=== PATIENT | male | born 1965 | race Caucasian/White ===

== ENCOUNTER → 2017-11-10 | Day surgery (SDC) | payer BC ==
[2017-10-30 16:08] VITALS: BMI 26.0
[~2017-11-10] VITALS: Ht 172.7 cm; Wt 79.5 kg
[~2017-11-10] MED LIST: ATROPINE SULFATE 0.1 MG/ML 5ML SYR IV PRN; BUPIVACAINE 0.5 % 5 MG/1 ML MPF 30ML VIAL ONE; CEFAZOLIN 2000MG IV PUSH 15 ML IV SCH; CEFAZOLIN SOD 2000MG/15 ML IV PUSH ONE; CHOL2000 PO; DEXAMETHASONE SOD INJ 4 MG/ML VIAL ONE; EpHEDrine SULFATE INJ 50 MG/ML AMP ONE; FENTANYL CITRATE INJ 50 MCG/1 ML 2 ML VIAL ONE; GLYCOPYRROLATE INJ 0.2 MG/ML VIAL ONE; HYDROmorphone INJ 2 MG/ML SYR/VIAL IV PRN; HYDROmorphone INJ 2 MG/ML SYR/VIAL ONE; IBUP-1050 PO; KETOROLAC TROMETHAMINE 30 MG/ML VIAL IV. PRN; LACTATED RINGER'S 1000ML 1,000 ML IV SCH; LIDOCAINE HCL 1% 20 ML VIAL ONE; LIDOCAINE HCL 2% 2 ML VIAL (20MG/ML) ONE; MIDAZOLAM HCL 1 MG/ML 2ML VIAL ONE; MoRPHine SULFATE 4 MG/ML 1 ML CARP\\VIAL IV PRN; NEOSTIGMINE METHYLSULFATE 5 MG/5 ML SYR ONE; ONDANSETRON INJ 2 MG/ML 2 ML VIAL IV PRN; ONDANSETRON INJ 2 MG/ML 2 ML VIAL ONE; OXYCODONE/ACETAMINOPHEN 5-325 TAB PO PRN; PHENYLEPHRINE HCL INJ 10 MG/ML VIAL ONE; PREG100C PO; PROPOFOL IV EMULSION 10 MG/ML 20 ML VIAL ONE; SODIUM CHLORIDE 0.9% 1000ML 1,000 ML IV SCH; SUCCINYLCHOLINE CHLORIDE 20 MG/ML 10 ML VIAL IV ONE
[2017-11-10 05:47] VITALS: BP 144/88; PULSE 73; TEMP 36.6; O2SAT 96; Ht 172.7 cm; Wt 79.5 kg
--- NOTE | 2017-11-10 06:49 | History & Physical Bridge Note ---
H&P Re-Evaluation Bridge Note: I have examined the patient, reviewed the History & Physical and in the interval since the performance of the History & Physical I have noted the following changes of clinical significance: No changes noted
--- NOTE | 2017-11-10 08:11 | [facility] Post Operative Brief Note ---
Immediate Operative Summary Operative Date November 10, 2017. Pre-Operative Diagnosis Left Inguinal Hernia Post-Operative Diagnosis same Procedure(s) Performed Left Inguinal Hernia repair with polypropylene monofilament mesh Surgeon Dr. Jamie Bermeo Refrigerating Engineer Head Surgeon(s) Juany Cohen PA-C Estimated Blood Loss 5mL Findings Consistent with Post-Op Diagnosis Specimens none Drains None Anesthesia Type General Complication(s) none Disposition Disposition: Recovery Room / PACU
--- NOTE | 2017-11-10 08:15 | Discharge Instructions ---
Discharge Instructions Date of Service November 10, 2017. Admission Reason for Admission: Left Inguinal Hernia Discharge Discharge Diagnosis / Problem: Same Discharge Goals Goal(s): Decrease discomfort Activity Recommendations Activity Limitations: per Instructions/Follow-up section Lifting Limitations: no more than 10 pounds (for 6 weeks) Shower/Bathe: no limitations (shower only), tomorrow ACTIVITY RECOMMENDATIONS: * Walk as much as possible. * No heavy lifting (>10 lbs.) for 6 weeks. SPECIAL CARE INSTRUCTIONS: * Ice to hernia repair site on and off until bedtime tonight. * May shower in 24 hours. Let water run over area and pat dry. * Leave steri strips on for one week. * Call the surgeon's office with any questions or concerns - (ex. temperature higher than 101 degrees F, excessive bleeding or pain). MEDICATIONS: Resume previous medications unless instructed otherwise by your surgeon. * Ibuprofen 600 mg every 6 hours with food * Percocet 1 every 4 hours, as needed for pain FOLLOW UP VISIT: If not already scheduled, please call the office to schedule a two week follow- up appointment. Office number . Current Hospital Diet Patient's current hospital diet: Discharge Diet Recommended Diet: Regular Diet Procedures Procedures Performed: Left Inguinal Hernia repair with polypropylene monofilament mesh Pending Studies Studies pending at discharge: no Medical Emergencies . Who to Call and When: Medical Emergencies: If at any time you feel your situation is an emergency, please call 911 immediately. . Non-Emergent Contact Non-Emergency issues call your: Primary Care Provider, Surgeon Call Non-Emergent contact if: your pain is worsening, your pain is unusual for you, wound has increased redness . "Provider Documentation" section prepared by Jamie Bermeo. .
[2017-11-10] MEDS: FENTANYL CITRATE INJ 50 MCG/1 ML 2 ML VIAL IV PRN ×8 (08:43→09:20)
--- NOTE | 2017-11-10 09:43 | Anesthesiology Progress Note ---
Anesthesia Post Op Note Date & Time November 10, 2017 at 09:43 Vital Signs Vital Signs Past 12 Hours Date Time Temp Pulse Resp B/P (MAP) Pulse Ox O2 Delivery O2 Flow Rate FiO2 11/10/17 09:25 36.5 81 16 138/81 100 Room Air 11/10/17 09:15 80 16 138/83 100 Room Air 11/10/17 09:05 77 16 124/68 100 Oxymask 7 11/10/17 08:55 73 16 104/52 100 Oxymask 7 11/10/17 08:45 70 16 140/87 100 Oxymask 7 11/10/17 08:36 36.3 83 83 146/89 100 Oxymask 7 11/10/17 05:47 36.6 73 18 144/88 (106) 96 Room Air Notes Mental Status: alert / awake / arousable, participated in evaluation Pt Amnestic to Procedure: Yes Nausea / Vomiting: adequately controlled Pain: adequately controlled Airway Patency, RR, SpO2: stable & adequate BP & HR: stable & adequate Hydration State: stable & adequate Anesthetic Complications: no major complications apparent
[2017-11-10 09:52] VITALS: BP 131/83; PULSE 74; TEMP 36.9; O2SAT 98
[2017-11-10 10:22] VITALS: BP 120/77; PULSE 77; TEMP 36.8; O2SAT 97
--- NOTE | 2017-11-10 10:44 | OPERATIVE REPORT ---
DATE OF OPERATION: 11/10/2017 PREOPERATIVE DIAGNOSIS: Left inguinal hernia. POSTOPERATIVE DIAGNOSIS: Left direct inguinal hernia. PROCEDURE: Repair of left direct inguinal hernia. SURGEON: Jamie Bermeo MD OB SCRUB TECH: Juany Cohen PA-C FINDINGS: The patient had a moderate-sized hernia sac. The defect was within the floor of the canal. There was no direct component. There were no incarcerated contents. The cord structures appeared normal. TECHNIQUE: The patient was given a general anesthetic and the area was prepped and draped in the usual sterile fashion. A left inguinal incision was made, carried down through the subcutaneous tissue to the fascia. A small incision was made in the fascia and the underlying structures were off its undersurface and it was opened through the external ring. It was opened superolaterally as well. The edges of the external oblique were retracted medially and laterally. I then elevated the contents of the canal and working at the level of the pubic tubercle and near the internal ring. I was able to separate the cord structures away from the floor of the canal, at which point the direct hernia sac was easily identified. The hernia sac was away from the cremasteric fibers and surrounding the cord structures and was completely freed. The cord was then elevated away from the floor and ferrer of the canal completely. The hernia sac was away from the edges of the defect and placed back into its anatomic position and the floor was oversewn with a running 0 PDS. A piece of preformed inguinal hernia mesh was placed into the inguinal canal and sewn to the anterior surface of the internal oblique medially, tissue over the pubic bone inferiorly, and the shelving border of the inguinal ligament laterally. The legs of the mesh were approximated to each other to create a new internal ring that admitted the tip of my finger. Cord structures were placed back into their anatomic position and the external oblique was closed over them using a running 2-0 Vicryl. The deep subcutaneous tissue was closed with running 2-0 Vicryl. The superficial subcutaneous tissue was closed with running 3-0 Vicryl. The skin was closed with 4-0 Monocryl in running subcuticular fashion. The skin was anesthetized with 0.5% Marcaine and an ilioinguinal block was performed with that same local. The skin was cleansed, dried, benzoin placed, Steri-Strips applied. The estimated blood loss was 5 mL. Sponge, needle, and instrument counts were correct prior to closure. The patient tolerated the surgical procedure without complication and was transferred to recovery. I attest to the content of the Intraoperative Record and any orders documented therein. Any exception s are noted below.
[2017-11-10 10:45] VITALS: BP 125/75; PULSE 76; TEMP 36.5; O2SAT 95
== END | disposition home or self-care (01) ==
LOC: C.ACU 05:20
PROVIDERS: ATTEND Surgery
DX: K40.90 Unilateral inguinal hernia, without obstruction or gangrene, not specified as recurrent (principal); M79.7 Fibromyalgia; F17.210 Nicotine dependence, cigarettes, uncomplicated

== ENCOUNTER 2019-01-26 11:20 | Inpatient (IN) ==
--- OUTSIDE RECORDS SUMMARY | 2019-01-26 11:24 | External Medical Summary | Continuity of Care Document ---
:1965 Author Name Mayo Perez, Provider Address Unavailable Unavailable , Care Team Providers Name Role Phone Unavailable Unavailable Unavailable Karen Perez, Devan Santiago Unavailable [email or web address] CHRISTOPHER GANDHI M.D., Jacob Unavailable Unavailable Unavailable Unavailable Unavailable Problems Vitamin D deficiency (268.9) (E55.9) Infectious mononucleosis (075) (B27.90) Lyme disease (088.81) (A69.20) Lumbosacral neuritis (724.4) (M54.17) Numbness (782.0) (R20.0) Fever (780.60) (R50.9) Open Wound Of The Left Ring Finger (883.0) Preventive Medicine [facility] Patient Checkup Adult 40-64 (V70.0 ) Nausea (787.02) (R11.0) Encounter for screening for malignant neoplasm of prostate ( V76.44) (Z12.5) Nicotine dependence (305.1) (F17.200) Arthralgia of multiple sites (719.49) (M25.50) Myalgia and myositis (729.1) Myelopathy (336.9) (G95.9) Esophageal reflux (530.81) (K21.9) Abnormal liver function test (790.6) (R94.5) Urticaria (708.9) (L50.9) Open wound of finger (883.0) (S61.209A) Tingling (782.0) (R20.2) Dizziness (780.4) (R42) Polymyalgia rheumatica (725) (M35.3) Lower back pain (724.2) (M54.5) Allergies and Adverse Reactions No Known Drug Allergies (Allergy) Medications Vitamin D3 2000 UNIT Oral Capsule; TAKE 1 CAPSULE Daily Ana Jones Start: 12-Nov-2013 Quantity: 30 Refills: 5 Procedures History of Grafts Bone Status: Completed Preventive Medicine Estab Patient Checkup Adult 40-64 Immunizations Influenza On: Apr-2013 Tdap (Adacel) On: 17-Jun-2013 14:22 Lot #: [id number], SANOFI PASTEUR Family History Father Family history of Hypertension (V17.49) Status: Active Family history of Glaucoma Status: Active Family history of Acute Myocardial Infarction (V17.3) Status : Active Mother Family history of Breast Cancer (V16.3) Status: Active Unknown Family Member Family history of Cancer Status: Active Comments: Famil y History uncle Family history of Cancer Status: Active Plan of Treatment Planned Observations Planned Goals not documented Results No Known Results Results not documented
[2019-01-26] MEDS ORDERED: SODIUM CHLORIDE 0.9% 1000ML 1,000 ML IV ONE (11:49)
[2019-01-26 11:57] LABS: Basophils # (auto) 0.02 K/uL (0-0.2); Basophils % (auto) 0.2 %; Eosinophils # (auto) 0.23 K/uL (0-0.5); Eosinophils % (auto) 2.2 %; Hematocrit (blood only) 45.1 % (42-52); Hemoglobin 15.8 g/dL (14.0-18.0); Immature Granulocytes # (auto) 0.03 K/uL (0.00-0.02); Immature Granulocytes % (auto) 0.3 %; Lymphocytes # (auto) 3.85 K/uL (1.2-3.4); Lymphocytes % (auto) 37.2 %; Mean Platelet Volume 10.5 fL (7.4-10.4); Monocytes # (auto) 0.59 K/uL (0.11-0.59); Monocytes % (auto) 5.7 %; Neutrophils # (auto) 5.62 K/uL (1.4-6.5); Neutrophils % (auto) 54.4 %; Platelet Count 232 K/uL (130-400); RDW Coefficient of Variation 12.6 % (11.5-14.5); RDW Standard Deviation 39.9 fL (36.4-46.3); Red Blood Count 5.07 M/uL (4.7-6.1); White Blood Count 10.34 K/uL (4.8-10.8)
--- NOTE | 2019-01-26 12:02 | XRay Report ---
XR chest 1V portable HISTORY: 53 years-old Male CP, smoker acute atypical chest pain COMPARISON: None available TECHNIQUE: Portable AP view of the chest FINDINGS: Cardiac mediastinal and hilar silhouettes are within normal limits. No pneumothorax, pleural effusion , focal airspace consolidation or overt pulmonary edema. Bones of the chest appear grossly intact. IMPRESSION: No acute process. The above report was generated using voice recognition software. It may contain grammatical, syntax o r spelling errors. Electronically signed by: Jimmie Paul M.D. 01/26/2019 12:00 PM
[2019-01-26 12:05] LABS: BUN Creatinine Ratio 12.7 (10-20); Calcium 9.5 mg/dl (8.5-10.1); Creatinine Clr Calc Pharmacy 98.5 ml/min; Est GFR (African American) 108.9; Potassium 4.1 mmol/L (3.5-5.1)
[2019-01-26 12:09] LABS: Troponin I 0.016 ng/ml (0-0.045)
[2019-01-26 12:24] LABS: D Dimer 210 ug/L FEU (0-500)
[2019-01-26] MEDS ORDERED: ASPIRIN 81 MG CHEW PO STA (14:10)
[2019-01-26] MEDS ORDERED: HEPARIN SODIUM/DEXTROSE 25,000 UNITS/500 ML BAG IV SCH (14:30)
[2019-01-26 15:00] LABS: Partial Thromboplastin Time 25.9 Seconds (21.0-31.0); Prothrombin Time 10.3 Seconds (9.0-12.0)
[2019-01-26] MEDS ORDERED: MIDAZOLAM HCL 1 MG/ML 2ML VIAL ONE ×3 (15:16→17:09)
[2019-01-26] MEDS ORDERED: NITROGLYCERIN/D5W 100MCG/ML 20ML SYR ONE (15:17)
[2019-01-26] MEDS ORDERED: NiCARDipine HCL INJ 2.5 MG/ML 10 ML AMP ONE (15:17)
[2019-01-26] MEDS ORDERED: HEPARIN (PORCINE) 1000 UNIT/ML 10 ML (CATH LAB USE ONLY) ONE ×2 (15:17→16:48)
[2019-01-26] MEDS ORDERED: fentaNYL citrate 100 MCG/2 ML VIAL ONE (15:17)
--- NOTE | 2019-01-26 15:27 | Cardiology Consultation ---
Date of Consultation January 26, 2019 Assessment & Plan (1) Non-ST elevation RI (NSTEMI): (2) HTN (hypertension): (3) Dyslipidemia: (4) Tobacco abuse: 53-year-old patient presents emergency department with chest discomfort and elevated troponin suggestive of NSTEMI. Exercise stress echo negative for inducible ischemia 08/2018, however, upon review of stress ECG, there are ST depressions. No regional wall motion abnormalities noted. Statin therapy recently discontinued secondary to fibromyalgia. Patient received aspirin in the ER. Recommend restarting statin therapy and IV heparin. Risk, benefits, and alternatives to cardiac catheterization discussed with patient at length. He is agreeable to procedure and percutaneous intervention if indicated. Smoking cessation advised. Further recommendations clinical course and results of cardiac catheterization. History of Present Illness Reason for Consultation: Chest pain, NSTEMI Requesting Physician: Dr. Lo, ER physician Attending Physician: Dr. Elías Seals History of Present Illness 53-year-old patient presented to the emergency department with chest discomfort radiating to his arms and wrist. Patient carries a history of intermittent chest and arm discomfort dating back to July of this year. He was evaluated by PCP at that time and underwent exercise stress echocardiography in August. Exercise stress echo demonstrated ischemic ECG changes however there were no echocardiographic wall motion abnormalities to suggest ischemia. Notes 2 episodes of overt syncope over the past 6 months. Syncopal episodes are typically associated with pain. Today, patient was at work when he began to experience a tightness in his chest radiating to his neck. This was followed by a "hot flash". The discomfort radiated to his bilateral biceps and then to his wrist. States his arm discomfort became quite intense and persisted for more than 20 minutes. He attempted to rest however the symptoms did not resolve. Proceeded to the ER for further evaluation. Initial ECG unremarkable. First troponins minimally elevated with second set rising to positive range. He is chest pain-free after receiving aspirin in the emergency department. Denies personal history of coronary disease, congestive heart failure, rheumatic fever as a child, diabetes, or hypertension. Carries history of dyslipidemia previously treated with statin therapy however recently discontinued due to history of fibromyalgia. Admits to daily tobacco use and a 29-mmwy-illg history. Denies family history of premature coronary disease. No allergies. No prior intolerance to sedation. Allergies Allergy/AdvReac Type Severity Reaction Status Date / Time blue dye Allergy Unknown URINARY Verified 01/26/19 11:38 HESITIANCY duloxetine Allergy Unknown URINARY Verified 01/26/19 11:38 HESITIANCY milnacipran Allergy Unknown TESTICULAR Verified 01/26/19 11:38 PAIN Home Medications Home Medications Medication Instructions Recorded Confirmed Type ibuprofen 200 mg PO Q6H PRN 01/26/19 01/26/19 History pregabalin [Lyrica] 100 mg PO HS 01/26/19 01/26/19 History Patient History Medical History Lyme disease (Acute) Fibromyalgia (Chronic) Family History Mother Heart disease Father Heart disease Social History Preferred Language: [place]ican Feels Safe at Home: Yes Smoking Status: Current every day smoker Review of Systems Review of Systems: All systems reviewed & are unremarkable except as noted in HPI & below Physical Exam Physical Exam: General: NAD, AAO x3, well nourished. HEENT: Normocephalic. Atraumatic. Conjunctiva pink, no scleral icterus. Neck: No carotid bruits, the carotid upstrokes are brisk. No JVD. No HJR Heart: Regular normal S-1 and S-2 no S-3 or S-4 gallop. No murmurs or rub appreciated. PMI is not displaced. No RV heave. Lungs: Clear bilateral without rales , rhonchi, or wheeze. Abdomen: Normal bowel sounds. Soft. Nontender. No masses or organomegaly. No abdominal bruits. Extremities: No clubbing, cyanosis, or edema. Pulses: radial=2/4, Dorsalis pedis =2/4, posterior tibial=2/4. Neuro: Cranial nerves grossly intact. No focal motor deficit. Results & Data Vital Signs (Past 12 Hours) Vital Signs Temp Pulse Pulse Resp BP BP Pulse Ox 01/26/19 15:15 78 18 146/97 H 99 01/26/19 14:54 63 18 148/94 H 98 01/26/19 13:21 74 18 135/85 98 01/26/19 11:23 36.6 C 87 20 170/99 H 99 Laboratory Results Laboratory Results - last 24 hr 01/26/19 01/26/19 01/26/19 11:38 11:38 11:38 WBC 10.34 RBC 5.07 Hgb 15.8 Hct 45.1 MCV 89.0 MCH 31.2 MCHC 35.0 RDW Std Deviation 39.9 RDW Coeff of Luis F 12.6 Plt Count 232 MPV 10.5 H Immature Gran % (Auto) 0.3 Neut % (Auto) 54.4 Lymph % (Auto) 37.2 [place] % (Auto) 5.7 Eos % (Auto) 2.2 Baso % (Auto) 0.2 Immature Gran # (Auto) 0.03 H Neut # (Auto) 5.62 Lymph # (Auto) 3.85 H [place] # (Auto) 0.59 Eos # (Auto) 0.23 Baso # (Auto) 0.02 PT INR APTT PTT Ratio D-Dimer 210 Sodium 140 Potassium 4.1 Chloride 106 Carbon Dioxide 28 Anion Gap 6.0 BUN 12 Creatinine 0.92 Est Cr Clr Drug Dosing 98.5 Est GFR ( Amer) 108.9 Est GFR (Non-Af Amer) 94.0 BUN/Creatinine Ratio 12.7 Glucose 93 Calcium 9.5 Troponin I 0.016 01/26/19 01/26/19 11:38 13:30 WBC RBC Hgb Hct MCV MCH MCHC RDW Std Deviation RDW Coeff of Luis F Plt Count MPV Immature Gran % (Auto) Neut % (Auto) Lymph % (Auto) [place] % (Auto) Eos % (Auto) Baso % (Auto) Immature Gran # (Auto) Neut # (Auto) Lymph # (Auto) [place] # (Auto) Eos # (Auto) Baso # (Auto) PT 10.3 INR 1.0 APTT 25.9 PTT Ratio 1.0 D-Dimer Sodium Potassium Chloride Carbon Dioxide Anion Gap BUN Creatinine Est Cr Clr Drug Dosing Est GFR ( Amer) Est GFR (Non-Af Amer) BUN/Creatinine Ratio Glucose Calcium Troponin I 0.048 H*
--- NOTE | 2019-01-26 15:35 | Pre Anesthesia Assessment ---
Date of Service January 26, 2019 Pre Sedation Assessment Vital Signs Temp Pulse Pulse Resp BP BP Pulse Ox 01/26/19 15:15 78 18 146/97 H 99 01/26/19 14:54 63 18 148/94 H 98 01/26/19 13:21 74 18 135/85 98 01/26/19 11:23 36.6 C 87 20 170/99 H 99 Cardiovascular RRR, no murmur, no edema + regular rate Respiratory normal respiratory effort, lungs clear to auscultation Pre-Sedation Airway Assessment Smoking Status: Current every day smoker Hx Sleep Apnea: No Hx Difficult Intubation: No Short, Thick Neck: No Mallampati Class: II ASA: ASA3 NPO Status Date of Last Intake of Solid Food: 01/26/19 Time of Last Intake of Solid Foods: 06:00 Procedure Planning Contraindications for Sedation: none Current Medications Reviewed: Yes Notes The planned sedation has been discussed with the patient. Informed Consent was obtained. I have identified the patient, determined the appropriateness of sedation and have assessed the patient immediately prior to the procedure. All medicine(s) and interventions are by my order.
--- NOTE | 2019-01-26 15:35 | History & Physical Report ---
Date of Service January 26, 2019 Assessment & Plan (1) Chest pain: Elevated troponins suspected Non ST Elevation Myocardial Infarction (NSTEMI) -Patient in the AM of 01/26/19 had called his family doctor to report chest pain across the chest radiating down both arms. He had 2 episodes of theses type of pain and the first episode lasted for 15 to 20 minutes. When seen in the emergency room patient's chest pain appears to have resolved. First troponin was negative as 0.016 and 2nd troponin however was elevated to 0.048. Emergency room physician had initially ordered heparin drip for concern of Non ST Elevation Myocardial Infarction (NSTEMI) however while awaiting for the heparin drip, card iology Dr. Jimy Cardenas advised cardiac cath on 01/26/19 -follow up results from cardiac cath and cardiology recommendations Code Status: full code : [phone] Patient is admitted by hospitalist Dr. Seals and will be followed on 01/27/[address] Rudd History of Present Illness Patient seen and examined in the ED prior to cardiac cath. Patient in the AM of 01/26/19 had called his family doctor to report chest pain across the chest radiating down both arms. He had 2 episodes of theses type of pain and the first episode lasted for 15 to 20 minutes. When seen in the emergency room patient's chest pain appears to have resolved. First troponin was negative as 0.016 and 2nd troponin however was elevated to 0.048. Emergency room physician had initially ordered heparin drip for concern of Non ST Elevation Myocardial Infarction (NSTEMI) however while awaiting for the heparin drip, cardiology Dr. Jimy Cardenas advised cardiac cath today. On exam by hospitalist prior to cardiac cath, patient breathing on room air. no shortness of breath. no palpitations. no current chest pain. no lightheadedness. no dizziness. no nausea Primary Care Provider: Jamie Sultana MD Allergies Allergy/AdvReac Type Severity Reaction Status Date / Time blue dye Allergy Unknown URINARY Verified 01/26/19 11:38 HESITIANCY duloxetine Allergy Unknown URINARY Verified 01/26/19 11:38 HESITIANCY milnacipran Allergy Unknown TESTICULAR Verified 01/26/19 11:38 PAIN Home Medications Home Medications Medication Instructions Recorded Confirmed Type ibuprofen 200 mg PO Q6H PRN 01/26/19 01/26/19 History pregabalin [Lyrica] 100 mg PO HS 01/26/19 01/26/19 History Past Med/Surg History Medical History Lyme disease (Acute) Fibromyalgia (Chronic) Family History Mother Heart disease Father Heart disease Social History Preferred Language: Kiswahili Feels Safe at Home: Yes Smoking Status: Current every day smoker Review of Systems Review of Systems: All systems reviewed & are unremarkable except as noted in HPI & below Physical Exam Constitutional: WD/WN, vitals as above Eyes: PERRL, conjunctivae normal, anicteric sclerae EOM intact bilaterally ENMT: external ear and nose normal, oropharynx normal Neck: normal visual inspection Respiratory: normal respiratory effort, lungs clear to auscultation normal respiratory effort Cardiovascular: RRR, no murmur, no edema Gastrointestinal (Abdomen): normal bowel sounds, soft, nontender, no hepatosplenomegaly Musculoskeletal: Head/Neck/Chest: normocephalic and head atraumatic Neurologic: PERRL, EOMI, accommodation nl, no face palsy, no dysarthria Psychiatric: A+Ox3, euthymic affect Results & Data Vital Signs (Past 12 Hours) Vital Signs Temp Pulse Pulse Resp BP BP Pulse Ox 01/26/19 15:15 78 18 146/97 H 99 01/26/19 14:54 63 18 148/94 H 98 01/26/19 13:21 74 18 135/85 98 01/26/19 11:23 36.6 C 87 20 170/99 H 99
--- NOTE | 2019-01-26 16:12 | Cardiac Catheterization ---
Cardiac Cath Procedure Full Procedure Date January 26, 2019 Pre-Procedure Diagnosis Pre-Procedure Diagnosis: Non STEMI AUC Score AUC Score: 8 Post-Procedure Diagnosis Post-Procedure Diagnosis: Severe CAD Procedure(s) Performed Procedure(s) Performed: Coronary Angiography and Left Heart Cath Admissions Assistant Jimy Cardenas DO Medium Cycle Salesperson(s) Kwan RTMat Estimated Blood Loss Estimated Blood Loss: 5cc Medication(s) Medication(s): Fentanyl, Heparin, Lidocaine 1%, Nicardipine, Nitroglycerin and Versed Summary of Findings 75% mid LAD. 95% proximal diagonal Hemodynamics Rest Ao:: 116/71/93 Final Ao: 123/69/93 LV: 116//9 Recommendations Recommendations: PCI without planned CABG Specimens Specimens: None Radiation Exposure (mGy) 1533 Contrast (mls) 80 Fluids (cc crystalloids) Fluids (cc crystalloids): 50cc Nss Anesthesia Moderate sedation. Start 1539, and 1602. 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 TARUN 2 flow) D1 (% Stenosis): Mid (95% involving medial limb of bifurcating diagonal branch vessel) D2 (% Stenosis): Normal Circumflex (% Stenosis): Proximal (30%) and Mid (continues as small AV groove vessel) OM1 (% Stenosis): Ostial (20% taper) OM2 (% Stenosis): Proximal (20%. Large vessel with small secondary branch) RCA (% Stenosis): Mid (30%) and Distal (30%) R PDA (% Stenosis): Ostial (30% taper) R PL1 (% Stenosis): Proximal (40%) R PL2 (% Stenosis): Normal Diagnostic Physicians Name: Jimy Cardenas DO Closure Device Recommendations: PCI without planned CABG
[2019-01-26] MEDS ORDERED: CLOPIDOGREL BISULFATE 300 MG TAB ONE (16:38)
[2019-01-26] MEDS ORDERED: TICAGRELOR 90 MG TAB PO ONE (17:12)
--- NOTE | 2019-01-26 17:19 | Post Anesthesia Assessment ---
Date of Service January 26, 2019 Post Sedation Assessment Vital Signs Temp Pulse Pulse Resp BP BP Pulse Ox 01/26/19 15:15 78 18 146/97 H 99 01/26/19 14:54 63 18 148/94 H 98 01/26/19 13:21 74 18 135/85 98 01/26/19 11:23 36.6 C 87 20 170/99 H 99 Recovery Score Activity: Moves 4 extremities Respiration: Deep Breath/Cough Circulation: +/-20% PreAnes Value Consciousness: Fully Awake Oxygen Saturation: O2 needed for >90% Discharge Sedation Level of Care: Fast Track Phase II Post Sedation Plan On clinical assessment, the patient appears to have tolerated the sedation without complications. Patient is recovering as anticipated. Patient will continue to be monitored by nursing and may be discharged when sedation discharge criteria are met per below protocol. Upon Completions of procedure and additional 15 minutes continue every 5 minute vital signs and the P.A.R. score; then discharge to a Phase I or Fast Track to Phase II per the following guidelines: * Discharge Patient to appropriate Phase II area if PAR is 8 or greater or return to pre- procedure baseline. The post - procedure orders will be as directed. * If PAR score is less than 8 or not return to pre-procedure baseline then patient will follow Phase I monitoring till PAR is reached for Phase II. The Phase I may be done in procedure room or may call to secure a Phase I area. * If naloxone or flumazenil are used for reversal, hold in Phase I for continued monitoring from when last reversal dose was given for a minimum of 60 minutes or longer pending the nurse and/or physician discretion of patient condition before discharge to Phase II. Please call the Sedation Physician to re-evaluate and complete post-note for discharge to Phase II area. Do NOT discharge from procedure sedation or Phase 1 until post- sedation evaluation note is complete by procedure /sedation MD Sedation Discharge Instructions to be given to the patient at discharge to home.
--- NOTE | 2019-01-26 17:28 | Cardiac Catheterization ---
Cardiac Cath Procedure Full Procedure Date January 26, 2019 Pre-Procedure Diagnosis Pre-Procedure Diagnosis: Non STEMI AUC Score AUC Score: 8 Post-Procedure Diagnosis Post-Procedure Diagnosis: Severe CAD and Successful PCI Procedure(s) Performed Procedure(s) Performed: Coronary Angiography, Drug Eluting Stent and IVUS Home Delivery Driver Hung Echeverria MD Air Vice Marshal(s) Kwan MEEHAN Estimated Blood Loss Estimated Blood Loss: 5cc Medication(s) Medication(s): Fentanyl, Heparin, Nicardipine, Nitroglycerin and Versed Medication(s): Ticagrelor Summary of Findings Indication: NSTEMI Access: 6 Fr right radial artery Catheters: EBU 3.5 guide Findings: For full details of patient's coronary angiography please cath report dictated by Dr. Cardenas. Briefly, patient found to have severe single vessel disease including a 95 % stenosis involving the second diagonal (likely culprit) and 70% mid LAD stenosis at takeoff of diagonal. Decision to proceed with PCI. -- PCI -- Antithrombotic therapy: Heparin, ticagrelor Procedure: Left main cannulated with EBU 3.5 guide Pro-water wire passed across lesion into distal LAD Whisper wire placed into second diagonal IVUS used to assess extent of LAD disease diffuse up to 70 to 80% disease, MLA 2.4 mm Second diagonal lesion predilated with 2.0 compliant balloon Diagonal stented with 2.25 x 18 mm [place] drug-eluting stent Dilated lesion stented with 2.25 NC IVUS of diagonal confirm no significant disease at the distal aspect of stent, stent well expanded 2.5 x 26 mm [place] drug-eluting stent placed to mid LAD across takeoff of diagonal Diagonal rewired with whisper wire Stent post-dilated with 3.0 noncompliant balloon IC vasodilators administered for spasm IVUS confirmed reasonable stent expansion and no apparent edge complications Post procedure TARUN 3 flow, stent well expanded with minimal residual stenosis and no apparent cardiac complications. Arterial Closure: TR band Summary: 1. Successful PCI of mid LAD with single drug-eluting stent (2.5 x 26 [place]; postdilated with 3.0 NC). 2. Successful PCI of proximal second diagonal with single drug-eluting stent (2.25 x 18 [place]). 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 Cardiac Status Clinical evaluation leading to the procedure CAD Presenation: Non STEMI Anginal Classification: CCS IV Heart Failure: No Cardiogenic Shock within 24 Hours: No Cardiac Arrest within 24 Hours: No Imaging Studies Past 6 Months: Yes Stress Studies Past 6 Months: Yes Diagnostic Physicians Name: Hung Echeverria MD Status: Urgent Closure Device Percutaneous Entry Location: Radial Closure Device: Radial Band Recommendations: PCI without planned CABG PCI Indication: PCI for high risk Non-BESS Lesion Segment Name: mid LAD Culprit Artery: Yes Stenosis Prior to Rx (%): 70 Chronic Total Occlusion: No IVUS: Yes Pre-Procedure TARUN Flow: 2 Previously Treated Lesion: No Lesion Complexity: Non-High/Non-C Lesion Length (mm): 20 Thrombus Present: No Bifurcation Lesion: Yes Guidewire Across Lesion: Stenosis Post-Procedure (%): 0 Post-Procedure TARUN Flow: 3 Devices(s) Deployed: Yes Yes Lesion #2 Segment Name: diagonal Culprit Artery: Yes Stenosis Prior to Rx (%): 95 Chronic Total Occlusion: No IVUS: Yes FFR: No Pre-Procedure TARUN Flow: 3 Previously Treated Lesion: No Lesion Complexity: Non-High/Non-C Lesion Length (mm): 12 Thrombus Present: Yes Bifurcation Lesion: No Guidewire Across Lesion: Yes Stenosis Post-Procedure (%): 0 Post-Procedure TARUN Flow: 3 Devices(s) Deployed: Yes Intraprocedure Events Significant Disection: No Perforation: No
--- NOTE | 2019-01-26 17:43 | Emergency Department Note ---
Entered by Gela Treviño acting as a scribe for Dennys Lo MD ED Provider Note Name: Jignesh Bianchi Age: 53M Arrives Via: POB Informant: Patient CC: Cardiac assessment HPI: The patient is a 53 year old male that is presenting to the Emergency Room with complaints of persistent bilateral chest pains that started this morning around 0700. The patient reports that both sides of his chest ache. He states that he has light aches in his bilateral biceps and that he feels like his wrist are in ice water. He notes some associated swelling in his bilateral feet. He states that the pain has dulled somewhat since its onset. The patient notes that he had a similar issue earlier this year with some associated abdominal pain, diaphoresis, and lightheadedness. He states that he completed an EKG and stress test at that time, which were negative for any acute process. He notes an intermittent tightness in the right side of his neck independent of his current symptoms. He denies any history of blood clots, hypertension, or cardiac disease. He state that his mother and father had a history of CAD but he states he is unsure of the age of onset for either parent. He reports that he has a history of fibromyalgia and Lyme disease. He notes that he has smoked a pack of cigarettes a day for around 35 years. He denies any alcohol or drug use. The patient notes that he was referred to the Emergency Room by his PCP. ROS: See above HPI for pertinent positives & negatives. A total of 10 systems reviewed and were otherwise negative. Past Medical History: Fibromyalgia, Lyme disease Past Surgical History: No significant surgical history Family History: Cardiac Disease: mother and father Social History: and lives with spouse, employed; Smoker (pack a day), no alcohol or drug use Home Medications: None Allergies NKDA Physical: Vitals: BP: 170/99; P: 87; R: 20; T: 97.9F, O2 99% Exam: GENERAL: Patient is moderately anxious appearing and in no acute distress. EYES: No scleral icterus, unremarkable pupils. ENT: Mucous membranes moist, no nasal congestion. NECK: No masses appreciated, no meningismus, trachea is midline. RESPIRATORY: No dyspnea. No rhonchi. Wheezing in the bases of the bilateral lungs. CARDIOVASCULAR: Regular rate and rhythm. No murmurs, rubs, gallops appreciated. GASTROINTESTINAL: Abdomen soft, non-tender, no peritonitis. Bowel sounds positive. No masses appreciated. BACK: No midline tenderness, no CVA tenderness EXTREMITIES: Normal motion all extremities, no cyanosis, no edema. Sunburn to bilateral lower legs. NEUROLOGIC: Alert and oriented, no acute motor or sensory deficits, no focal weakness, cranial nerves grossly intact. SKIN: No rash, no jaundice, no diaphoresis. ED Course: Prior Medical Record, Triage/Nursing Notes, Medications, Allergies reviewed by Me Vital Signs: reviewed and remarkable for Labs: Reviewed and remarkable for initially wnl trop, but repeat elevated. Dimer negative. CBC/BMP/INR/PTT OK. Interventions: Saline lock, ASA 324mg PO, Heparing Bolus/gtt IV. Imaging: XR chest 1V portable HISTORY: 53 years-old Male CP, smoker acute atypical chest pain COMPARISON: None available TECHNIQUE: Portable AP view of the chest FINDINGS: Cardiac mediastinal and hilar silhouettes are within normal limits. No pneumotho rax, pleural effusion, focal airspace consolidation or overt pulmonary edema. Bones of the chest appear grossly intact. IMPRESSION: No acute process. The above report was generated using voice recognition software. It may contain grammatical, syntax or spelling errors. Electronically signed by: Jimmie Paul M.D. 01/26/2019 12:00 PM EKG #1: Per My Interpretation: Indication Chest Pain: NSR 78 bpm with partial RBBB without ectopy nor ischemia. QTC 517. Similar to EKG October 18, 2018. EKG #2: Per My Interpretation: Indication Repeat for Cards Rule Out: NSR 71 bpm with partial RBBB without ecotopy/ischemia. QTC 410. Similar to earlier EKG Course: 1142:The patient was evaluated in room C09. A complete history and physical examination was performed. 1258 I reevaluated the patient at this time. He states that he is feeling well. I am ordering a repeat Troponin. 1414: I rechecked the patient who is resting comfortably. He is agreeable to stay for observation. Cardiology for Jn was paged. 1425: I discussed the patient's case with Dr. Jeffrey, Cardiology, who recommended agrees with giving the patient aspirin and starting him on Heparin. He will evaluate the patient further. 1458: I discussed the patients case with DAVID Meraz, who will evaluate the patient for further management and care with Dr. Seals as the attending physician. 1500: Upon reevaluation, the patient is resting comfortably. I discussed laboratory and radiographic results with the patient. He verbalized agreement of the treatment plan. The patient will be evaluated for further management and care. Blood pressure: Elevated - Referred to Hospitalist Disposition: Hospitalization Differentials: Differential: ACS, PE, Dissection, Pneumothorax, MSK, GI, amongst other etiologies entertained. Medical Decision Making: Pleasant 53 yr old male with history smoking, Lyme disease, Fibromyalgia, who arrives for evaluation following episode of bilateral chest discomfort radiating to bilateral arms which lasted roughly 20min then resolved. Admits near syncopal episode at same time though states near syncope chronic for patient. He has long family history of CAD. Intial EKG without ischemia and intial trop wnl. He is stable without complaints. Dimer negative and thus I do not feel CTA indicated with normal CXR. He was monitored for 2 hours and then repeat trop done which was positive. I reviewed case with Cards who agree with Heparin start and admission. They will plan to take to optical laboratory manager for further management. Patient was also given Aspirin. He has ruled in for NSTEMI. After review with patient he has no acute contraindications for Heparin and is agree able to starting this which I proceeded to do. Hospitalists in to evaluate further. There was no stemi criteria and cardiology evaluated EKG as well. I will note that I was contacted later in evening by Cards who note patient did have acute occlusion on cath and was being stented at that time. Impression: NSTEMI Critical Care Time: I have personally spent greater than 40 minutes of critical care time in the direct management of this patient. Acute NSTEMI requiring Heparinization and taken to optical laboratory manager for further management.This was a life/limb threatening event. This includes time spent evaluating patient, direct bedside care, chart review, placing orders, interpretation of diagnostic studies, discussion with consultants, patient, and family members, as well as other required patient management activities. This 40 minutes is in excess of all separately billable procedures. The scribe's documentation has been prepared under my direction and personally reviewed by me in its entirety. I confirm that the note above accurately re flects all work, treatment, procedures, and medical decision making performed by me. Dennys Lo MD Impression & Plan Non-ST elevation [place] (NSTEMI) Past Med/Surg History Medical History Lyme disease (Acute) Fibromyalgia (Chronic) Family History Mother Heart disease Father Heart disease Social History Preferred Language: Serbian Feels Safe at Home: Yes Smoking Status: Current every day smoker Results & Data Vital Signs Vital Signs - 24 hr 01/26/19 11:23 01/26/19 13:21 01/26/19 14:54 Temperature 36.6 C Temperature Source Oral Sepsis Recent Fever Within 48 Hours No Sepsis New/Unexplained Change in Mental Status No Sepsis Action Taken by Nursing No Action Required Pulse Rate 87 Pulse Rate [Apical] 74 63 Pulse Rhythm Regular Pulse Strength Normal Respiratory Rate 20 18 18 Respiratory Effort / Characteristics Non-Labored Spontaneous Non-Labored Spontaneous Respiratory Depth Normal Normal Respiratory Pattern Regular Blood Pressure 170/99 H Blood Pressure [Left Arm] 135/85 148/94 H Blood Pressure Mean 122 Blood Pressure Mean [Left Arm] 101 112 Blood Pressure Position Sitting Pulse Oximetry 99 98 98 Oxygen Delivery Method Room Air Room Air 01/26/19 15:15 Temperature Temperature Source Sepsis Recent Fever Within 48 Hours Sepsis New/Unexplained Change in Mental Status Sepsis Action Taken by Nursing Pulse Rate Pulse Rate [Apical] 78 Pulse Rhythm Pulse Strength Respiratory Rate 18 Respiratory Effort / Characteristics Respiratory Depth Respiratory Pattern Blood Pressure Blood Pressure [Left Arm] 146/97 H Blood Pressure Mean Blood Pressure Mean [Left Arm] 113 Blood Pressure Position Pulse Oximetry 99 Oxygen Delivery Method Laboratory Data Result diagrams: 01/26/19 11:38 01/26/19 11:38 Lab Results 01/26/19 01/26/19 01/26/19 Range/Units 11:38 11:38 11:38 WBC 10.34 (4.8-10.8) K/uL RBC 5.07 (4.7-6.1) M/uL Hgb 15.8 (14.0-18.0) g/dL Hct 45.1 (42-52) % MCV 89.0 (80-100) fL MCH 31.2 (25-34) pg MCHC 35.0 (32-36) g/dL RDW Std Deviation 39.9 (36.4-46.3) fL RDW Coeff of Luis F 12.6 (11.5-14.5) % Plt Count 232 (130-400) K/uL MPV 10.5 H (7.4-10.4) fL Immature Gran % (Auto) 0.3 % Neut % (Auto) 54.4 % Lymph % (Auto) 37.2 % Gladwin % (Auto) 5.7 % Eos % (Auto) 2.2 % Baso % (Auto) 0.2 % Immature Gran # (Auto) 0.03 H (0.00-0.02) K/uL Neut # (Auto) 5.62 (1.4-6.5) K/uL Lymph # (Auto) 3.85 H (1.2-3.4) K/uL Gladwin # (Auto) 0.59 (0.11-0.59) K/uL Eos # (Auto) 0.23 (0-0.5) K/uL Baso # (Auto) 0.02 (0-0.2) K/uL PT (9.0-12.0) Seconds INR (0.9-1.1) APTT (21.0-31.0) Seconds PTT Ratio D-Dimer 210 (0-500) ug/L FEU Sodium 140 (136-145) mmol/L Potassium 4.1 (3.5-5.1) mmol/L Chloride 106 (98-107) mmol/L Carbon Dioxide 28 (21-32) mmol/L Anion Gap 6.0 (3-11) BUN 12 (7-18) mg/dl Creatinine 0.92 (0.6-1.4) mg/dl Est Cr Clr Drug Dosing 98.5 ml/min Est GFR ( Amer) 108.9 Est GFR (Non-Af Amer) 94.0 BUN/Creatinine Ratio 12.7 (10-20) Glucose 93 (70-99) mg/dl Calcium 9.5 (8.5-10.1) mg/dl Troponin I 0.016 (0-0.045) ng/ml 01/26/19 01/26/19 Range/Units 11:38 13:30 WBC (4.8-10.8) K/uL RBC (4.7-6.1) M/uL Hgb (14.0-18.0) g/dL Hct (42-52) % MCV (80-100) fL MCH (25-34) pg MCHC (32-36) g/dL RDW Std Deviation (36.4-46.3) fL RDW Coeff of Luis F (11.5-14.5) % Plt Count (130-400) K/uL MPV (7.4-10.4) fL Immature Gran % (Auto) % Neut % (Auto) % Lymph % (Auto) % Gladwin % (Auto) % Eos % (Auto) % Baso % (Auto) % Immature Gran # (Auto) (0.00-0.02) K/uL Neut # (Auto) (1.4-6.5) K/uL Lymph # (Auto) (1.2-3.4) K/uL Gladwin # (Auto) (0.11-0.59) K/uL Eos # (Auto) (0-0.5) K/uL Baso # (Auto) (0-0.2) K/uL PT 10.3 (9.0-12.0) Seconds INR 1.0 (0.9-1.1) APTT 25.9 (21.0-31.0) Seconds PTT Ratio 1.0 D-Dimer (0-500) ug/L FEU Sodium (136-145) mmol/L Potassium (3.5-5.1) mmol/L Chloride (98-107) mmol/L Carbon Dioxide (21-32) mmol/L Anion Gap (3-11) BUN (7-18) mg/dl Creatinine (0.6-1.4) mg/dl Est Cr Clr Drug Dosing ml/min Est GFR ( Amer) Est GFR (Non-Af Amer) BUN/Creatinine Ratio (10-20) Glucose (70-99) mg/dl Calcium (8.5-10.1) mg/dl Troponin I 0.048 H* (0-0.045) ng/ml Administered Medications Discontinued Medications Aspirin (Aspirin Chew) 324 mg PO NOW STA Stop: 01/26/19 14:11 Last Admin: 01/26/19 14:20 Dose: 324 mg Documented by: [id number] Clopidogrel Bisulfate (Plavix) Confirm Administered Dose 600 mg .ROUTE .[employer]-Fondu ONE Stop: 01/26/19 16:39 Last Admin: 01/26/19 17:14 Dose: Not Given Documented by: [id number] Fentanyl Citrate (Fentanyl Citrate) Confirm Administered Dose 100 mcg .ROUTE .STK-MED ONE Stop: 01/26/19 15:18 Last Increment: 01/26/19 17:06 Dose: 87.5 mcg Documented by: [id number] Heparin Sodium (Porcine) (Heparin Iv Bolus (Early Childhood Teacher Use Only)) Confirm Administered Dose 10,000 units .ROUTE .STK-MED ONE Stop: 01/26/19 15:18 Last Admin: 01/26/19 17:05 Dose: 10,000 units Documented by: [id number] Heparin Sodium (Porcine) (Heparin Iv Bolus (Early Childhood Teacher Use Only)) Confirm Administered Dose 10,000 units .ROUTE .STK-MED ONE Stop: 01/26/19 16:49 Last Admin: 01/26/19 17:05 Dose: 2,000 units Documented by: [id number] Heparin Sodium/Sodium Chloride (Heparin/Nss 1000 Unit/500ml Flush Bag) Confirm Administered Dose 6,000 units IV .STK-MED ONE Stop: 01/26/19 15:18 Last Admin: 01/26/19 17:00 Dose: 6,000 units Documented by: [id number] Sodium Chloride (Nss 1000ml) 1,000 mls @ 999 mls/hr IV .Q1H1M ONE Stop: 01/26/19 12:49 Last Infusion: 01/26/19 13:22 Dose: 0 mls/hr Documented by: [id number] Admin: 01/26/19 12:03 Dose: 999 mls/hr Documented by: [id number] Midazolam HCl (Versed) Confirm Administered Dose 2 mg .ROUTE .STK-MED ONE Stop: 01/26/19 15:17 Last Admin: 01/26/19 17:06 Dose: 2 mg Documented by: [id number] Midazolam HCl (Versed) Confirm Administered Dose 2 mg .ROUTE .STK-MED ONE Stop: 01/26/19 16:10 Last Admin: 01/26/19 17:06 Dose: 2 mg Documented by: [id number] Midazolam HCl (Versed) Confirm Administered Dose 2 mg .ROUTE .STK-MED ONE Stop: 01/26/19 17:10 Last Increment: 01/26/19 17:11 Dose: 1 mg Documented by: [id number] Nicardipine HCl (Cardene) Confirm Administered Dose 25 mg .ROUTE .STK-MED ONE Stop: 01/26/19 15:18 Last Admin: 01/26/19 16:59 Dose: 25 mg Documented by: [id number] Nitroglycerin/Dextrose (Nitroglycerin/D5w 100 Mcg/Ml 20ml Syringe) Confirm Administered Dose 2,000 mcg .ROUTE .STK-MED ONE Stop: 01/26/19 15:18 Last Admin: 01/26/19 17:00 Dose: 2,000 mcg Documented by: [id number] Ticagrelor (Brilinta) Confirm Administered Dose 180 mg PO .STK-MED ONE Stop: 01/26/19 17:13 Last Admin: 01/26/19 17:14 Dose: 180 mg Documented by: [id number] Discharge Plan Visit Data Chief Complaint: Cardiac Assessment Stated Complaint: CHEST PAIN, ACHES IN ARMS,WRIST ED Provider: Dennys Lo Discharge Problem: Non-ST elevation IL (NSTEMI) Patient Disposition: Admitted As Inpatient Discharge Instructions Interventions: ED Discharge Assessment Last Done: 01/26/19 15:22 The scribe's documentation has been prepared under my direction and personally reviewed by me in its entirety. I confirm that the note above accurately reflects all work, treatment, procedures, and medical decision making performed by me.
[2019-01-26] MEDS ORDERED: SODIUM CHLORIDE 0.9% 1000ML 1,000 ML IV SCH (18:00)
[2019-01-26] MEDS: NICOTINE 7 MG/24 HR TDSY TD SCH (19:27)
[2019-01-27] MEDS ORDERED: ACETAMINOPHEN 325 MG TAB PO PRN (02:27)
[2019-01-27] MEDS: NICOTINE 7 MG/24 HR TDSY TD SCH (08:29)
[2019-01-27] MEDS ORDERED: ATORVASTATIN 40 MG TAB PO SCH (09:00)
[2019-01-27] MEDS ORDERED: ASPIRIN 81 MG ECTAB PO SCH (09:00)
[2019-01-27] MEDS ORDERED: TICAGRELOR 90 MG TAB PO SCH (09:00)
--- NOTE | 2019-01-27 12:06 | Cardiology Progress Note ---
Date of Service January 27, 2019 Assessment & Plan (1) Non-ST elevation [place] (NSTEMI): (2) HTN (hypertension): (3) Dyslipidemia: (4) Tobacco abuse: Cardiac catheterization revealed two-vessel coronary disease with mid LAD as well as 99% diagonal branch vessel (likely culprit vessel). Drug-eluting stent implanted x2 without complication. Patient recovering well. Tolerating dual antiplatelet medication and high intensity statin therapy. Add low-dose Toprol-XL 25 mg daily. Will obtain ECG, echocardiogram, and basic metabolic panel at this time. Plan for discharge later this afternoon. Outpatient cardiology follow-up in 2 weeks. Patient will be provided with prescription for sublingual nitroglycerin at time of discharge as well. Subjective Patient seen and examined at the bedside. Denies chest pain overnight. No dysrhythmias on telemetry. present at bedside. Patient denies palpitations, lightheadedness, dizziness, orthopnea, PND, or lower extremity edema. No wrist ecchymosis or hematoma. Tolerating current medications. No signs or symptoms of GI/ blood loss. Tolerating diet. Offers no concerns/complaints at this time. Review of Systems Review of Systems: All systems reviewed & are unremarkable except as noted in HPI & below Physical Exam Physical Exam: General: NAD, AAO x3, well nourished. HEENT: Normocephalic. Atraumatic. Conjunctiva pink, no scleral icterus. Neck: No carotid bruits, the carotid upstrokes are brisk. No JVD. No HJR Heart: Regular normal S-1 and S-2 no S-3 or S-4 gallop. No murmurs or rub appreciated. PMI is not displaced. No RV heave. Lungs: Clear bilateral without rales , rhonchi, or wheeze. Abdomen: Normal bowel sounds. Soft. Nontender. No masses or organomegaly. No abdominal bruits. Extremities: Right wrist without ecchymosis or hematoma. No clubbing, cyanosis, or edema. Pulses: radial=2/4, Dorsalis pedis =2/4, posterior tibial=2/4. Neuro: Cranial nerves grossly intact. No focal motor deficit. Results & Data Vital Signs (Past 12 Hours) Vital Signs Temp Pulse Pulse Resp BP BP Pulse Ox 01/27/19 08:03 36.4 C L 63 18 139/68 96 01/27/19 08:00 58 L 01/27/19 04:10 36.4 C L 60 18 141/89 H 99
[2019-01-27 12:07] VITALS: TEMP 98.2
[2019-01-27 12:13] LABS: Basophils # (auto) 0.02 K/uL (0-0.2); Basophils % (auto) 0.2 %; Eosinophils # (auto) 0.23 K/uL (0-0.5); Eosinophils % (auto) 2.6 %; Hematocrit (blood only) 46.1 % (42-52); Hemoglobin 16.3 g/dL (14.0-18.0); Immature Granulocytes # (auto) 0.01 K/uL (0.00-0.02); Immature Granulocytes % (auto) 0.1 %; Lymphocytes # (auto) 3.04 K/uL (1.2-3.4); Lymphocytes % (auto) 34.9 %; Mean Corpuscular Volume 90.2 fL (80-100); Mean Platelet Volume 9.9 fL (7.4-10.4); Monocytes # (auto) 0.73 K/uL (0.11-0.59); Monocytes % (auto) 8.4 %; Neutrophils # (auto) 4.69 K/uL (1.4-6.5); Neutrophils % (auto) 53.8 %; Platelet Count 237 K/uL (130-400); RDW Coefficient of Variation 12.5 % (11.5-14.5); RDW Standard Deviation 41.3 fL (36.4-46.3); Red Blood Count 5.11 M/uL (4.7-6.1); White Blood Count 8.72 K/uL (4.8-10.8)
[2019-01-27 12:27] LABS: Mean Corpuscular Hgb Conc 35.4 g/dL (32-36)
[2019-01-27 12:29] LABS: BUN Creatinine Ratio 12.3 (10-20); Calcium 9.3 mg/dl (8.5-10.1); Creatinine Clr Calc Pharmacy 102.9 ml/min; Est GFR (African American) 112.9; Est GFR (Non-African American) 97.4; Potassium 4.1 mmol/L (3.5-5.1)
[2019-01-27] MEDS ORDERED: METOPROLOL SUCC 25MG EXT REL TAB PO SCH (12:30)
[2019-01-27 12:44] LABS: Troponin I 1.91 ng/ml (0-0.045)
[2019-01-27 15:29] VITALS: BP 132/81; O2SAT 96
--- NOTE | 2019-01-27 16:48 | Hospitalist Progress Note ---
Date of Service January 27, 2019 Assessment & Plan (1) Chest pain: Presented with chest heaviness chest discomfort-anginal symptom, found to have non-ST elevated OK underwent cardiac cath status post drug-eluting stent placement No complaint of chest discomfort, dyspnea on exertion or chest heaviness post cardiac cath Stable to be discharged home with dual antiplatelet, high intensity statin, Lopressor (2) Non-ST elevation [place] (NSTEMI): Presented with chest pain across the chest radiating down both arms. He had 2 episodes of theses type of pain and the first episode lasted for 15 to 20 minutes. When seen in the emergency room patient's chest pain appears to have resolved. First troponin was negative as 0.016 and 2nd troponin however was elevated to 0.048. Patient was taken to cardiac cath: Cardiac catheterization revealed two-vessel coronary disease with mid LAD as well as 99% diagonal branch vessel (likely culprit vessel). Drug-eluting stent implanted x2 without complication. Started on dual antiplatelet aspirin 81 mg daily, Brilinta 90 mg p.o. twice daily-tolerating well without any complication -Prescription sent to pharmacy, patient's pharmacy right aid at bill found contacted co-pay for Brilinta 30 days supply is $30-patient is okay with the copayment Started on high intensity statin therapy. Added low-dose Toprol-XL 25 mg daily. Stable to be for discharge home today . Outpatient cardiology follow-up in 2 weeks. Patient provided with prescription for sublingual nitroglycerin at time of discharge as well. (3) HTN (hypertension): Added Lopressor (4) Dyslipidemia: High intensity statin therapy atorvastatin 80 mg p.o. daily with goal of LDL less than 70 (5) Tobacco abuse: Strongly recommended to quit smoking Patient is updated regarding risk of in-stent stenosis with ongoing smoking future risk of myocardial thrombosis, heart attack, stroke Patient voiced understanding CODE STATUS: Full code Disposition: Stable to be discharged home today Patient is scheduled to follow-up with family physician Dr. Jamie Sultana next 02/01/2019 at 3 PM Cardiology follow-up in a week Subjective Ambulating on the hallway, no complaint of chest pain no shortness of breath, comfortable Evaluated by cardiology earlier, stable to be discharged home Patient will be discharged home with dual antiplatelets: Aspirin 81 mg daily Brilinta 90 mg twice daily High intensity statin therapy, Lopressor As needed sublingual nitro Physical Exam Physical Exam: GENERAL: No sign of distress, HEENT: Sclera nonicteric, pink-purple bilateral equal reactive to light extraocular muscle intact Normal oral mucosa, neck: No JVD, no thyromegaly, trachea midline Lungs: Clear to auscultate, no wheeze or rales Cardiovascular: Regular S1 and S2, no murmur or gallop, no JVD, no lower extremity edema Abdomen: Soft, nontender, bowel sounds active, no hepatosplenomegaly Extremities: Right wrist catheter inserted site, healing well no bruising no swelling or tenderness Neuro: No focal neurological deficit, no dysarthria, no facial droop Psych: Alert awake oriented x3: Euthymic Skin: No rash LYMPH NODES: No cervical lymphadenopathy Results & Data Vital Signs (Past 12 Hours) Vital Signs Temp Pulse Pulse Pulse Resp BP BP 01/27/19 15:24 36.8 C 65 19 132/81 01/27/19 12:06 36.8 C 66 18 141/62 H 01/27/19 08:03 36.4 C L 63 18 139/68 01/27/19 08:00 58 L Pulse Ox 01/27/19 15:24 96 01/27/19 12:06 95 01/27/19 08:03 96 01/27/19 08:00
[2019-01-27 17:42] VITALS: PULSE 66
--- NOTE | 2019-01-27 18:24 | Discharge Summary ---
Date of Service January 27, 2019 Admission HPI Per Admitting Provider History of Present Illness Patient seen and examined in the ED prior to cardiac cath. Patient in the AM of 01/26/19 had called his family doctor to report chest pain across the chest radiating down both arms. He had 2 episodes of theses type of pain and the first episode lasted for 15 to 20 minutes. When seen in the emergency room patient's chest pain appears to have resolved. First troponin was negative as 0.016 and 2nd troponin however was elevated to 0.048. Emergency room physician had initially ordered heparin drip for concern of Non ST Elevation Myocardial Infarction (NSTEMI) however while awaiting for the heparin drip, cardiology Dr. Jimy Cardenas advised cardiac cath today. On exam by hospitalist prior to cardiac cath, patient breathing on room air. no shortness of breath. no palpitations. no current chest pain. no lightheadedness. no dizziness. no nausea Primary Care Provider: Jamie Sultana MD Principal Diagnosis Non-ST elevated RI Discharge Exam Constitutional WD/WN, vitals as above Eyes PERRL, conjunctivae normal, anicteric sclerae EOM intact bilaterally ENMT external ear and nose normal, oropharynx normal Neck normal visual inspection Respiratory normal respiratory effort, lungs clear to auscultation normal respiratory effort Cardiovascular RRR, no murmur, no edema Gastrointestinal (Abdomen) normal bowel sounds, soft, nontender, no hepatosplenomegaly Musculoskeletal Head/Neck/Chest: normocephalic and head atraumatic Neurologic PERRL, EOMI, accommodation nl, no face palsy, no dysarthria Psychiatric A+Ox3, euthymic affect Discharge Data Allergies Allergy/AdvReac Type Severity Reaction Status Date / Time blue dye Allergy Unknown URINARY Verified 01/26/19 11:38 HESITIANCY duloxetine Allergy Unknown URINARY Verified 01/26/19 11:38 HESITIANCY milnacipran Allergy Unknown TESTICULAR Verified 01/26/19 11:38 PAIN Consultations 01/26/19 14:27 Consult Cardiology Routine 01/26/19 14:58 ED Decision to Admit Stat 01/26/19 17:29 Consult Cardiac Rehabilitation Routine Procedures Performed Operation Date: 01/26/19 15:30 Actual Procedures s Cineradiography w/Routine Exam - Jimy Cardenas DO p Cath, Left with Cors and Vent - Jimy Cardenas DO s IVUS Coronary Single Vessel - Alek Echeverria MD p Drug Eluting Stent SGl Vessel - Alek Echeverria MD s IVUS Coronary each ADDL Vessel - Alek Echeverria MD Ordered Studies 01/26/19 15:18 CL Cath Imgs for PACS use only Stat 01/26/19 17:16 CL IVUS Coronary Single Vessel Routine Hospital Course (1) Chest pain: Presented with chest heaviness chest discomfort-anginal symptom, found to have non-ST elevated RI underwent cardiac cath status post drug-eluting stent placement No complaint of chest discomfort, dyspnea on exertion or chest heaviness post cardiac cath Stable to be discharged home with dual antiplatelet, high intensity statin, Lopressor (2) Non-ST elevation RI (NSTEMI): Presented with chest pain across the chest radiating down both arms. He had 2 episodes of theses type of pain and the first episode lasted for 15 to 20 minutes. When seen in the emergency room patient's chest pain appears to have resolved. First troponin was negative as 0.016 and 2nd troponin however was elevated to 0.048. Patient was taken to cardiac cath: Cardiac catheterization revealed two-vessel coronary disease with mid LAD as well as 99% diagonal branch vessel (likely culprit vessel). Drug-eluting stent implanted x2 without complication. Started on dual antiplatelet aspirin 81 mg daily, Brilinta 90 mg p.o. twice daily-tolerating well without any complication -Prescription sent to pharmacy, patient's pharmacy right aid at bill found contacted co-pay for Brilinta 30 days supply is $30-patient is okay with the copayment Started on high intensity statin therapy. Added low-dose Toprol-XL 25 mg daily. Stable to be for discharge home today . Outpatient cardiology follow-up in 2 weeks. Patient provided with prescription for sublingual nitroglycerin at time of discharge as well. (3) HTN (hypertension): Added Lopressor (4) Dyslipidemia: High intensity statin therapy atorvastatin 80 mg p.o. daily with goal of LDL less than 70 (5) Tobacco abuse: Strongly recommended to quit smoking Patient is updated regarding risk of in-stent stenosis with ongoing smoking future risk of myocardial thrombosis, heart attack, stroke Patient voiced understanding CODE STATUS: Full code Disposition: Stable to be discharged home today Patient is scheduled to follow-up with family physician Dr. Jamie Sultana next 02/01/2019 at 3 PM Cardiology follow-up in a week Total Time Total Time Spent Total Time Spent (In Minutes): Approximately 40 minutes Total Time Includes: Examination of the Patient, Discharge Planning and Medication Reconciliation Discharge Plan Discharge Items Patient Disposition: Home - Self-Care Reason For Visit: NSTEMI Discharge Diagnosis: Coronary artery disease, chest pain, non-ST elevated RI, status post stent placement Discharge Goals: Decrease discomfort, Diagnostic testing and Therapeutic intervention Activity: Per 'Additional Instructions' section Activity Comment: As tolerated Driving/Machine Use: Resume 3 days after discharge Non-emergency contact: Primary Care Provider Call non-emergency contact if: you have any medication questions Follow-up/Referrals: Jimy Cardenas DO [Glaze Sprayer] - (follow up in 1 week ) Jamie Sultana MD [Primary Care Provider] - 02/02/19 3:00 pm Diet: Heart Healthy Add Provider Instructions: Do not take ibuprofen: Take aspirin, Brilinta, uninterrupted for 12 months Please take with meal Hospital follow-up with Dr. Jamie Sultana next 02/02/2019 at 3 PM New medications: 1. Aspirin 81 mg by mouth daily -take with food(for cardiac stent) 2. Brilinta 90 mg by mouth twice daily-take with food(for cardiac stent) 3. Atorvastatin 80 mg by mouth daily(for cholesterol) 4. Metoprolol 25 mg by mouth daily(for cardiac disease and blood pressure control) 5. take sublingual nitro tab as needed for chest pain, put 1 tablet under tongue, can repeat every 5 minutes up to 3 times, please call 911 or come to nearest ER It is very important for you to quit smoking to prevent future heart attack, stroke ACTIVITY RECOMMENDATIONS: Excess manipulation of the wrist should be avoided for the next 24-48 hours. * No lifting over 2 pounds (approximately a 1/2 gallon of milk) with the utilized arm for 24 hours. * No strenuous activity such as bowling or tennis for 3 days. * Keep the site of the procedure covered with a bandage for 24 hours. *You may shower the day after the procedure. Do not take a tub bath or submerge the puncture site in water for the next 3 days. *Do not operate any motorized equipment for 3 days. SPECIAL CARE INSTRUCTIONS: The site may be slightly bruised and sore following your procedure. Should any of the following occur, contact the Dr. who performed your procedure. 1. Redness/inflammation, swelling, chills, or fever, or colored drainage at procedure site within 3-7 days after your procedure. 2. Coldness, discoloration, ongoing numbness, severe pain, or swelling. Expect mild tingling of hand and tenderness at the puncture site for up to three days. If this persists beyond three days, or other symptoms develop, notify the Dr. who performed your procedure. BLEEDING: If the procedure site on your wrist begins to bleed, do not panic 1. Place 1 or 2 fingers firmly just slightly above the insertion site to stop the bleeding. You may be able to feel your pulse as you hold pressure. 2. Lift your finger after 5 minutes to see if the bleeding has stopped. 3. Once the bleeding has stopped, gently wipe the wrist area clean with a bandage. * If the bleeding from your wrist does not stop after 10 minutes, or if there is a large amount of bleeding or spurting, call 911 (do not drive yourself to the hospital). SKIN IRRITATION: * You may experience some redness and/or swelling in the area where radiation was administered. If any skin irritation occurs, please contact your family physician. FOLLOW UP VISIT: Keep any scheduled doctor appointments. Prescriptions: New atorvastatin 40 mg Tablet 80 mg PO QAM 30 Days Qty: 60 RF: 3 aspirin [Ecotrin Low Strength] 81 mg Tablet,Delayed Release (Dr/Ec) 81 mg PO QAM 30 Days Qty: 30 RF: 3 metoprolol succinate 25 mg Tablet Extended Release 24 Hr 25 mg PO QAM 30 Days Qty: 30 RF: 3 Brilinta 90 mg Tablet 90 mg PO BID 30 Days Qty: 60 RF: 3 nitroglycerin 0.4 mg tablet, sublingual 0.4 mg sublingual Q5M PRN (Reason: chest pain) Qty: 30 RF: 3 Continued Lyrica 100 mg capsule 100 mg PO HS RF: 0 Discontinued ibuprofen 200 mg Tablet 200 mg PO Q6H PRN (Reason: Pain) RF: 0 Visit Report Forms: Smoking Cessation Stand-Alone Forms: My Tappr, Work/School Release (Inpt) Alem/Other Patient Handouts: Foods Heart Healthy Discharge Orders: Discharge Order (Routine); Ordered 01/27/19 Ordered By: Coby Rudd Admission Data Admit Date/Time: 01/26/19 15:23 Attending Provider: Coby Rudd Admit Provider: Elías Seals Primary Care Provider: Jamie Sultana Other Providers: Jimy Cardenas ; Elías Seals ; Lee Cedeño Service: Telemetry Other Interventions: Discharge Summary Assessment (RN) Last Done: 01/27/19 17:39 DC Date/Time DO NOT enter until pt leaves facility: 01/27/19 18:19
== END 2019-01-27 18:19 | disposition home or self-care (01) | DRG 247 ==
LOC: ED 11:20 → 2S 15:22 → CC 15:22 → 2S 15:23 → SUATTDRO 15:23 → 2S 17:46
DX: I10 Essential (primary) hypertension; Z88.8 Allergy status to other drugs, medicaments and biological substances; Z79.899 Other long term (current) drug therapy; E78.5 Hyperlipidemia, unspecified; I25.10 Atherosclerotic heart disease of native coronary artery without angina pectoris; Z82.49 Family history of ischemic heart disease and other diseases of the circulatory system; Z91.048 Other nonmedicinal substance allergy status; I21.4 Non-ST elevation (NSTEMI) myocardial infarction; F17.210 Nicotine dependence, cigarettes, uncomplicated

== ENCOUNTER 2019-07-12 11:28 | Inpatient (IN) ==
[2019-07-12] MEDS ORDERED: SODIUM CHLORIDE 0.9% 500 ML IV ONE (11:49)
[2019-07-12 12:11] LABS: Basophils # (auto) 0.02 K/uL (0-0.2); Basophils % (auto) 0.2 %; Eosinophils # (auto) 0.25 K/uL (0-0.5); Eosinophils % (auto) 2.9 %; Hematocrit (blood only) 44.3 % (42-52); Hemoglobin 15.2 g/dL (14.0-18.0); Immature Granulocytes # (auto) 0.02 K/uL (0.00-0.02); Immature Granulocytes % (auto) 0.2 %; Lymphocytes # (auto) 3.55 K/uL (1.2-3.4); Mean Corpuscular Hemoglobin 31.3 pg (25-34); Mean Corpuscular Hgb Conc 34.3 g/dL (32-36); Mean Corpuscular Volume 91.3 fL (80-100); Mean Platelet Volume 10.1 fL (7.4-10.4); Monocytes # (auto) 0.65 K/uL (0.11-0.59); Monocytes % (auto) 7.5 %; Neutrophils # (auto) 4.17 K/uL (1.4-6.5); Neutrophils % (auto) 48.2 %; Platelet Count 245 K/uL (130-400); RDW Coefficient of Variation 12.2 % (11.5-14.5); RDW Standard Deviation 40.8 fL (36.4-46.3); Red Blood Count 4.85 M/uL (4.7-6.1); White Blood Count 8.66 K/uL (4.8-10.8)
[2019-07-12 12:27] LABS: Alanine Aminotransferase 66 U/L (12-78); Aspartate Aminotransferase 30 U/L (15-37); BUN Creatinine Ratio 17.8 (10-20); Blood Urea Nitrogen 15 mg/dl (7-18); Calcium 9.3 mg/dl (8.5-10.1); Carbon Dioxide 28 mmol/L (21-32); Chloride 107 mmol/L (98-107); Creatinine Clr Calc Pharmacy 109.6 ml/min; Est GFR (African American) 113.9; Est GFR (Non-African American) 98.3; Glucose 95 mg/dl (70-99); Lipase 93 U/L (73-393); Magnesium 2.2 mg/dl (1.8-2.4); Potassium 4.1 mmol/L (3.5-5.1); Sodium 137 mmol/L (136-145)
--- NOTE | 2019-07-12 12:29 | XRay Report ---
XR chest 1V portable CLINICAL HISTORY: Chest Pain COMPARISON STUDY: Chest radiograph April 01, 2019. FINDINGS: Lung volumes are normal. Lungs are clear. There is no pneumothorax or pleural effusion. Car diac size is normal. Mediastinal contours are normal. There is no evidence for pulmonary edema. IMPRESSION: No acute cardiopulmonary findings. ACT 112: Negative or not required by law. Electronically signed by: Ajay Perez M.D. 07/12/2019 12:28 PM
[2019-07-12 12:38] LABS: Albumin Globulin Ratio 1.1 (0.9-2); Alkaline Phosphatase 80 U/L (45-117); Bilirubin,Total 0.5 mg/dl (0.2-1); Globulin 3.7 gm/dl (2.5-4.0); Phosphorus 3.8 mg/dl (2.5-4.9); Total Protein 7.7 gm/dl (6.4-8.2); Troponin I < 0.015 ng/ml (0-0.045)
--- NOTE | 2019-07-12 14:13 | Emergency Department Note ---
Entered by Slime Dalal acting as a scribe for Macr Stanford MD History of Present Illness General Chief complaint: Shortness of Breath/Dyspnea Stated complaint: SOB,CHEST PAINS,NEAR SYNCOPE Time Seen by Provider: 07/12/19 11:49 Source: patient History of Present Illness Onset (ago): day(s) 1 Location: chest Severity: similar to prior episodes Pain Consistency: + constant Maximum Pain Intensity: 2 Quality: + aching and + dull Relieved By: + medication (Nitroglycerin) Exacerbated By: + medication (Metoprolol) Associated symptoms: + chest pain, + diaphoresis, + shortness of breath and + other (Positive dizziness, arm tingling. Negative congestion, diarrhea. ); no cough, no fever/chills and no nausea/vomiting The patient is a 53 year old male presenting to the Emergency Department complaining of constant chest pain starting 1 day ago. The patient reports that he has been experiencing mild chest pain. He describes this pain as a dull ache. He states that he has been feeling short of breath for the past few weeks. He notes that he has been experiencing sudden diaphoresis for the past few days. He adds that he has been light headed and somewhat dizzy. The patient states that he has experienced these symptoms before and that some of them are consistent with the symptoms he experienced before he had an NE in January 2019. He states that he took Nitroglycerin for his symptoms that improved his chest pain. He explains that he has been using Isosorbide Mononitrate for his chest pain for the past month and a half and that this medication only works sometimes. He notes that he has been experiencing bilateral arm tingling for the past month that is new. He adds that he has been following with cardiology but that he wasnt able to be seen this morning for his symptoms which is why he came to the Emergency Department. The patient reports that he started Metoprolol about 1 month ago and believes this is to blame for his shortness of breath and arm tingling. The patient denies fevers, chills, cough, congestion, nausea, vomiting and diarrhea. Home Medications Home Medications Medication Instructions Recorded Confirmed Type pregabalin [Lyrica] 100 mg PO HS 01/26/19 07/12/19 History nitroglycerin 0.4 mg SUBLINGUAL Q5M PRN #30 tab 01/27/19 07/12/19 Rx acetaminophen [Tylenol] 325 mg PO Q6H PRN 04/01/19 07/12/19 History aspirin [Ecotrin Low Strength] 81 mg PO HS 04/01/19 07/12/19 History clopidogrel 75 mg PO HS 04/01/19 07/12/19 History metoprolol succinate 25 mg PO HS 04/01/19 07/12/19 History atorvastatin 80 mg PO HS 07/12/19 07/12/19 History isosorbide mononitrate 30 mg PO HS 07/12/19 07/12/19 History metoprolol succinate 50 mg PO DAILY 07/12/19 07/12/19 History Allergies Allergy/AdvReac Type Severity Reaction Status Date / Time blue dye AdvReac Unknown URINARY Verified 07/12/19 12:38 HESITIANCY duloxetine AdvReac Unknown URINARY Verified 07/12/19 12:38 HESITIANCY milnacipran AdvReac Unknown TESTICULAR Verified 07/12/19 12:38 PAIN Past Med/Surg History Medical History CAD (coronary artery disease) (Chronic) Fibromyalgia (Chronic) Hyperlipidemia (Acute) Tobacco use disorder (Chronic) Surgical History History of cardiac cath (Acute) History of heart artery stent (Acute) Family History Mother Heart disease Father Heart disease Social History Preferred Language: Citizen Of [place] Communication Ability: Effective Information Systems Planner Required: No Beliefs That Will Affect Care: None Current Living Situation: Spouse 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 Stopped regular cigarettes, now using e-cigarette. ; Second Hand Exposure: No ; Hx Alcohol Use: No Hx Substance Use: No Review of Systems See HPI for pertinent positives & negatives. and A total of 10 systems reviewed and were otherwise negative Physical Exam Vital Signs Vital Signs - 24 hr 07/12/19 11:32 07/12/19 11:48 07/12/19 11:49 Temperature 36.7 C Temperature Source Oral Pulse Rate 78 73 72 Pulse Rate from SpO2 Sensor Pulse Rhythm Regular Pulse Strength Normal Respiratory Rate 16 23 23 Respiratory Effort / Characteristics Non-Labored Respiratory Depth Normal Respiratory Pattern Regular Blood Pressure 154/96 H 122/82 Blood Pressure [Left Arm] Blood Pressure Mean 115 86 Blood Pressure Mean [Left Arm] Blood Pressure Position Sitting Pulse Oximetry 97 Oxygen Delivery Method Room Air Sepsis Recent Fever Within 48 Hours No Sepsis Action Taken by Nursing No Action Required 07/12/19 11:54 07/12/19 12:00 07/12/19 12:01 Temperature Temperature Source Pulse Rate 68 69 69 Pulse Rate from SpO2 Sensor 68 69 Pulse Rhythm Regular Pulse Strength Respiratory Rate 18 20 24 Respiratory Effort / Characteristics Respiratory Depth Respiratory Pattern Blood Pressure 131/80 Blood Pressure [Left Arm] Blood Pressure Mean 85 Blood Pressure Mean [Left Arm] Blood Pressure Position Pulse Oximetry 97 96 96 Oxygen Delivery Method Room Air Sepsis Recent Fever Within 48 Hours Sepsis Action Taken by Nursing 07/12/19 12:30 07/12/19 12:31 07/12/19 12:33 Temperature Temperature Source Pulse Rate 65 66 65 Pulse Rate from SpO2 Sensor 65 66 66 Pulse Rhythm Pulse Strength Respiratory Rate 17 12 23 Respiratory Effort / Characteristics Respiratory Depth Respiratory Pattern Blood Pressure 116/77 116/77 Blood Pressure [Left Arm] Blood Pressure Mean 82 82 Blood Pressure Mean [Left Arm] Blood Pressure Position Pulse Oximetry 96 95 95 Oxygen Delivery Method Sepsis Recent Fever Within 48 Hours Sepsis Action Taken by Nursing 07/12/19 13:00 07/12/19 13:01 07/12/19 13:30 Temperature Temperature Source Pulse Rate 67 62 58 L Pulse Rate from SpO2 Sensor 64 62 58 L Pulse Rhythm Pulse Strength Respiratory Rate 15 18 15 Respiratory Effort / Characteristics Respiratory Depth Respiratory Pattern Blood Pressure 116/72 129/70 Blood Pressure [Left Arm] Blood Pressure Mean 80 79 Blood Pressure Mean [Left Arm] Blood Pressure Position Pulse Oximetry 98 98 97 Oxygen Delivery Method Sepsis Recent Fever Within 48 Hours Sepsis Action Taken by Nursing 07/12/19 13:31 07/12/19 13:55 07/12/19 14:00 Temperature Temperature Source Pulse Rate 58 L 64 Pulse Rate from SpO2 Sensor 59 L 62 Pulse Rhythm Pulse Strength Respiratory Rate 13 13 Respiratory Effort / Characteristics Respiratory Depth Respiratory Pattern Blood Pressure 115/90 Blood Pressure [Left Arm] Blood Pressure Mean 98 Blood Pressure Mean [Left Arm] Blood Pressure Position Pulse Oximetry 98 98 99 Oxygen Delivery Method Room Air Sepsis Recent Fever Within 48 Hours Sepsis Action Taken by Nursing 07/12/19 14:01 07/12/19 14:30 07/12/19 15:00 Temperature Temperature Source Pulse Rate 65 60 66 Pulse Rate from SpO2 Sensor 68 60 69 Pulse Rhythm Pulse Strength Respiratory Rate 15 16 18 Respiratory Effort / Characteristics Respiratory Depth Respiratory Pattern Blood Pressure Blood Pressure [Left Arm] Blood Pressure Mean Blood Pressure Mean [Left Arm] Blood Pressure Position Pulse Oximetry 98 99 95 Oxygen Delivery Method Sepsis Recent Fever Within 48 Hours Sepsis Action Taken by Nursing 07/12/19 15:26 07/12/19 15:27 07/12/19 15:30 Temperature Temperature Source Pulse Rate 63 71 Pulse Rate from SpO2 Sensor 64 68 Pulse Rhythm Pulse Strength Respiratory Rate 23 21 Respiratory Effort / Characteristics Respiratory Depth Respiratory Pattern Blood Pressure 120/73 131/89 Blood Pressure [Left Arm] 120/73 Blood Pressure Mean 87 97 Blood Pressure Mean [Left Arm] 88 Blood Pressure Position Pulse Oximetry 98 98 Oxygen Delivery Method Sepsis Recent Fever Within 48 Hours Sepsis Action Taken by Nursing 07/12/19 15:31 Temperature Temperature Source Pulse Rate 64 Pulse Rate from SpO2 Sensor 64 Pulse Rhythm Pulse Strength Respiratory Rate 19 Respiratory Effort / Characteristics Respiratory Depth Respiratory Pattern Blood Pressure Blood Pressure [Left Arm] Blood Pressure Mean Blood Pressure Mean [Left Arm] Blood Pressure Position Pulse Oximetry 98 Oxygen Delivery Method Sepsis Recent Fever Within 48 Hours Sepsis Action Taken by Nursing GENERAL: Awake, alert, well-appearing, in no distress HENT: Normocephalic, atraumatic. Oropharynx with dry mucous membranes and otherwise unremarkable. . EYES: Normal conjunctiva. Sclera non-icteric. NECK: Supple. No nuchal rigidity. FROM. No JVD. RESPIRATORY: CTAB. CARDIAC: Regular rate, normal rhythm. Extremities warm and well perfused. Pulses equal. ABDOMEN: Soft, non-distended. No tenderness to palpation. No rebound or guarding. No masses. RECTAL: Deferred. MUSCULOSKELETAL: Chest examination reveals no tenderness. The back is symmetrical on inspection without obvious abnormality. There is no CVA tenderness to palpation. No joint edema. LOWER EXTREMITIES: Calves are equal size bilaterally and non-tender. No edema. No discoloration. NEURO: Normal sensorium. No sensory or motor deficits noted. SKIN: No rash or jaundice noted. Course Course 1158: The patient was evaluated in room C7, and a complete history and physical examination were performed. 1300: EMR reviewed. The patient had a cardiac catheter placed in January 2019 stent placed in mid LAD, proximal second diagonal. Patient had stress echocardiogram in March 2019 which was normal. 1513: I discussed the patients case with Dr. Ryder ophthalmology assistant who evaluated the patient at bedside. He recommends admission for catheterization given that the patient continues to have chest pain despite initiation of Imdur. 1520: I discussed the patient's case Amy Bearden PA-C. Dr. Brown [facility]ist will evaluate the patient for further management. Administered Medications Atorvastatin Calcium (Lipitor) 80 mg PO HS [facility] Stop: 08/11/19 20:59 Last Admin: 07/12/19 19:45 Dose: 80 mg Documented by: [id number] Clopidogrel Bisulfate (Plavix) 75 mg PO HS [facility] Stop: 08/11/19 20:59 Last Admin: 07/12/19 19:46 Dose: 75 mg Documented by: [id number] Isosorbide Mononitrate (Imdur Extended Rel) 30 mg PO [facility] Stop: 08/11/19 20:59 Last Admin: 07/12/19 19:45 Dose: 30 mg Documented by: [id number] Metoprolol Succinate (Toprol Xl) 25 mg PO HS [facility] Stop: 08/11/19 20:59 Last Admin: 07/12/19 19:45 Dose: 25 mg Documented by: [id number] Pregabalin (Lyrica) 100 mg PO [facility] Stop: 08/11/19 20:59 Last Admin: 07/12/19 21:07 Dose: 100 mg Documented by: [id number] Discontinued Medications Aspirin (Aspirin Chew) 324 mg PO NOW STA Stop: 07/12/19 15:11 Last Admin: 07/12/19 15:18 Dose: 324 mg Documented by: [id number] Sodium Chloride (Nss) 500 mls @ 999 mls/hr IV .Q31M ONE Stop: 07/12/19 12:19 Last Infusion: 07/12/19 13:24 Dose: 0 mls/hr Documented by: [id number] Admin: 07/12/19 12:45 Dose: 999 mls/hr Documented by: [id number] Medical Decision Making Differential Diagnosis Differential diagnoses includes but is not limited to pneumonia, bronchitis, COPD/Asthma exacerbation, pneumothorax, pulmonary embolism, congestive heart failure, acute coronary syndrome Medical Records Attestation: I reviewed the patient's medical records. Home Medications Current Medication List: was personally reviewed by me Laboratory Data Attestation: I reviewed the patient's lab results. Result diagrams: 07/12/19 11:54 07/12/19 11:54 Lab Results 07/12/19 07/12/19 Range/Units 11:54 11:54 WBC 8.66 (4.8-10.8) K/uL RBC 4.85 (4.7-6.1) M/uL Hgb 15.2 (14.0-18.0) g/dL Hct 44.3 (42-52) % MCV 91.3 (80-100) fL MCH 31.3 (25-34) pg MCHC 34.3 (32-36) g/dL RDW Std Deviation 40.8 (36.4-46.3) fL RDW Coeff of Luis F 12.2 (11.5-14.5) % Plt Count 245 (130-400) K/uL MPV 10.1 (7.4-10.4) fL Immature Gran % (Auto) 0.2 % Neut % (Auto) 48.2 % Lymph % (Auto) 41.0 % Cassia % (Auto) 7.5 % Eos % (Auto) 2.9 % Baso % (Auto) 0.2 % Immature Gran # (Auto) 0.02 (0.00-0.02) K/uL Neut # (Auto) 4.17 (1.4-6.5) K/uL Lymph # (Auto) 3.55 H (1.2-3.4) K/uL Cassia # (Auto) 0.65 H (0.11-0.59) K/uL Eos # (Auto) 0.25 (0-0.5) K/uL Baso # (Auto) 0.02 (0-0.2) K/uL Sodium 137 (136-145) mmol/L Potassium 4.1 (3.5-5.1) mmol/L Chloride 107 (98-107) mmol/L Carbon Dioxide 28 (21-32) mmol/L Anion Gap 2.0 L (3-11) BUN 15 (7-18) mg/dl Creatinine 0.86 (0.6-1.4) mg/dl Est Cr Clr Drug Dosing 109.6 ml/min Est GFR ( Amer) 113.9 Est GFR (Non-Af Amer) 98.3 BUN/Creatinine Ratio 17.8 (10-20) Glucose 95 (70-99) mg/dl Calcium 9.3 (8.5-10.1) mg/dl Phosphorus 3.8 (2.5-4.9) mg/dl Magnesium 2.2 (1.8-2.4) mg/dl Total Bilirubin 0.5 (0.2-1) mg/dl AST 30 (15-37) U/L ALT 66 (12-78) U/L Alkaline Phosphatase 80 (45-117) U/L Troponin I < 0.015 (0-0.045) ng/ml Total Protein 7.7 (6.4-8.2) gm/dl Albumin 4.0 (3.4-5.0) gm/dl Globulin 3.7 (2.5-4.0) gm/dl Albumin/Globulin Ratio 1.1 (0.9-2) Lipase 93 (73-393) U/L TSH 1.070 (0.300-4.500) uIu/ml Imaging Data Radiologist's Impression: Radiology results as stated below per my review and the radiologist's interpretation: XR chest 1V portable CLINICAL HISTORY: Chest Pain COMPARISON STUDY: Chest radiograph April 01, 2019. FINDINGS: Lung volumes are normal. Lungs are clear. There is no pneumothorax or pleural effusion. Cardiac size is normal. Mediastinal contours are normal. There is no evidence for pulmonary edema. IMPRESSION: No acute cardiopulmonary findings. ACT 112: Negative or not required by law. Electronically signed by: Ajay Perez M.D. 07/12/2019 12:28 PM ECG Data Attestation: I personally reviewed and interpreted this ECG as follows: Indication: + chest pain Rate (beats per minute): 75 Rhythm: + sinus rhythm ECG Jessie: + Normal ECG ST segments: no ST depression and no ST elevation ECG Findings: + Other (QT-c 408. QRS 90.); no PACs and no PVCs Blood Pressure Blood Pressure Findings: Elevated blood pressure Blood Pressure Disposition: further management by hospitalist [facility] [place] The patient is a pleasant 53-year-old gentleman with a past medical history of CAD, and STEMI with PCI in January 2019 who presents emergency department with recurrence of his ongoing angina which she has experienced since his stent placement per HPI. On arrival patient is no acute distress, afebrile stable vital signs. EKG without overt acute ischemia. Chest x-ray negative for acute process. WBC, H/H, platelets wnl. Chemistry without acidosis. LFTs and electrolytes unremarkable. Troponin negative/undetectable. Case was discussed with [facility] cardiology on-call, Dr. Ryder who reviewed the patient's records and evaluate the patient at the bedside and recommends admission for catheterization to for further clarify the patient's persistent symptoms given that he continues to have recurrent chest pain despite being on Imdur in the setting of his more complicated coronary disease on his last pci. Case was discussed with Jn Milian PA-C, who evaluate the patient for admission. Impression & Plan Angina at rest, History of coronary artery disease, History of heart artery stent, History of hypertension Discharge Plan Visit Data *Final* Discharge Date/Time: 07/12/19 16:52 Chief Complaint: Shortness of Breath/Dyspnea Stated Complaint: SOB,CHEST PAINS,NEAR SYNCOPE ED Provider: Marc Stanford Discharge Problem: Angina at rest, History of coronary artery disease, History of heart artery stent, History of hypertension Patient Disposition: Admitted As Inpatient Discharge Instructions Interventions: ED Discharge Assessment Last Done: 07/12/19 16:52 The scribe's documentation has been prepared under my direction and personally reviewed by me in its entirety. I confirm that the note above accurately reflects all work, treatment, procedures, and medical decision making performed by me.
[2019-07-12] MEDS ORDERED: ASPIRIN 81 MG CHEW PO STA (15:10)
--- NOTE | 2019-07-12 15:35 | Electrocardiogram Report ---
Test Reason : Blood Pressure : / mmHG Vent. Rate : 074 BPM Atrial Rate : 074 BPM P-R Int : 162 ms QRS Dur : 090 ms QT Int : 368 ms P-R-T Axes : 061 029 047 degrees QTc Int : 408 ms Normal sinus rhythm Normal ECG When compared with ECG of 01-APR-2019 11:24, No significant change was found Confirmed by Carl Christiansen ([id number]) on 07/12/2019 3:35:45 PM Referred By: REFERRED SELF Confirmed By:Carl Christiansen
--- NOTE | 2019-07-12 15:35 | Cardiology Consultation ---
Date of Consultation July 12, 2019 Assessment & Plan (1) History of coronary artery disease: (2) Angina at rest: (3) Dyslipidemia: Patient presents with recurrent symptoms of angina, also had near syncope, and transient diaphoresis. I reviewed his cardiac catheterization films from January, I note that he had findings of complex bifurcating lesions treated with 2 drug-eluting stents. He has been seen several times as an outpatient, and now this is his second recent emergency room visit, having been seen by the undersigned in March, and again today, for recurrence of symptoms. Some of his symptoms are suggestive angina, and some are very atypical. He has been adherent to his medications. At this time, I recommend admission for further observation, anticipated repeat cardiac catheterization on an elective basis within the next 24 hours. Patient was agreeable to this approach. Currently he is asymptomatic, and his EKG reveals stable findings of normal sinus rhythm at 74 bpm. Troponin negative x1. Would add heparin if he has an increase in his cardiac enzymes, otherwise, we will continue to observe him on his prior to hospital medication regimen. History of Present Illness History of Present Illness Jignesh Bianchi is a 53 year old male seen in cardiology consultation per the request of Dr Stanford of the emergency department for the evaluation of chest discomfort, diaphoresis , and near syncope. The patient describes that 3 days ago on Friday he felt a transient episode of feeling hot with heavy perspiration and felt like he was going to pass out. His symptoms improved. He had r ecurrence yesterday, Friday, which was more severe, with association of feeling warm, heavy perspiration, with associated chest pressure, and dizziness. This event occurred when he was sitting eating breakfast and playing cards with his spouse. He debated coming to the hospital yesterday, but decided to wait to see how things went to see if they got better. He had a mild episode today and therefore came to the emergency room. Currently he is in no acute distress, he has occasional feelings of "twinges "which we determined correlated with sensed ventricular ectopy on his engine monitor, but this is different than the symptom that brought him to the hospital. He has been having problems with a recent blister at the tip of his nose which has been bleeding and he therefore has a Band-Aid on his nose. He has been taking his aspirin and clopidogrel without interruption. The patient has a history of coronary heart disease having presented with a non- ST segment elevation myocardial infarction in January,. At that time he was found to have complex bifurcating coronary heart disease of the mid LAD as well as a culprit 99% stenosis of the diagonal 2 branch of the LAD, each lesion was treated with a drug-eluting stent, on 01/26/2019. In the meantime he has been seen on several occasions in the clinic, and had been seen by the undersigned in emergency department consultation on 04/01/2016, for vague recurrent symptoms. At the time of his visit to the emergency room on 04/01/2019, he underwent an exercise stress echocardiogram, during which time he had a vague "twinge "of chest discomfort at low levels of exercise that did not progress with higher levels of exercise with no EKG or echocardiographic evidence of inducible ischemia. He was discharged with plans for ongoing medication treatment, and was placed on isosorbide mononitrate which had transiently helped with his chest discomfort symptoms, until recent recurrence. He was also previously on ticagrelor, but this was discontinued due to suspected intolerance with side effect of shortness of breath, and he was transition to clopidogrel several months ago. Allergies Allergy/AdvReac Type Severity Reaction Status Date / Time blue dye AdvReac Unknown URINARY Verified 07/12/19 12:38 HESITIANCY duloxetine AdvReac Unknown URINARY Verified 07/12/19 12:38 HESITIANCY milnacipran AdvReac Unknown TESTICULAR Verified 07/12/19 12:38 PAIN Home Medications Home Medications Medication Instructions Recorded Confirmed Type pregabalin [Lyrica] 100 mg PO HS 01/26/19 07/12/19 History nitroglycerin 0.4 mg SUBLINGUAL Q5M PRN #30 tab 01/27/19 07/12/19 Rx acetaminophen [Tylenol] 325 mg PO Q6H PRN 04/01/19 07/12/19 History aspirin [Ecotrin Low Strength] 81 mg PO HS 04/01/19 07/12/19 History atorvastatin 80 mg PO HS 04/01/19 07/12/19 History clopidogrel 75 mg PO HS 04/01/19 07/12/19 History metoprolol succinate 25 mg PO HS 04/01/19 07/12/19 History isosorbide mononitrate 30 mg PO DAILY 07/12/19 07/12/19 History Patient History Medical History Fibromyalgia (Chronic) Hyperlipidemia (Acute) Lyme disease (Acute) Surgical History (Updated 07/12/19 @ 15:23 by Slime Dalal) History of cardiac cath (Acute) History of heart artery stent (Acute) Family History Mother Heart disease Father Heart disease Social History Preferred Language: [place] Communication Ability: Effective Loading Dock Helper Required: No Beliefs That Will Affect Care: None Current Living Situation: Spouse 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 Stopped regular cigarettes, now using e-cigarette. ; Second Hand Exposure: No ; Hx Alcohol Use: No Hx Substance Use: No Review of Systems Review of Systems: All systems reviewed & are unremarkable except as noted in HPI & below Physical Exam Physical Exam: Temp Pulse Resp BP Pulse Ox 36.7 C 66 18 120/73 95 07/12/19 11:32 07/12/19 15:00 07/12/19 15:00 07/12/19 15:27 07/12/19 15:00 Constitutional: WD/WN, vitals as above Respiratory: normal respiratory effort, lungs clear to auscultation Cardiovascular: RRR, no murmur, no edema Gastrointestinal (Abdomen): normal bowel sounds, soft, nontender, no hepatosplenomegaly Skin: dressed lesion on the nose, no active bleeding Neurologic: PERRL, EOMI, accommodation nl, no face palsy, no dysarthria Results & Data Vital Signs (Past 12 Hours) Vital Signs Temp Pulse Resp BP Pulse Ox 07/12/19 13:55 98 07/12/19 13:31 58 L 13 98 07/12/19 13:30 58 L 15 129/70 97 07/12/19 13:01 62 18 98 07/12/19 13:00 67 15 116/72 98 07/12/19 12:33 65 23 116/77 95 07/12/19 12:31 66 12 95 07/12/19 12:30 65 17 116/77 96 07/12/19 12:01 69 24 96 07/12/19 12:00 69 20 131/80 96 07/12/19 11:54 68 18 97 07/12/19 11:49 72 23 07/12/19 11:48 73 23 122/82 07/12/19 11:32 36.7 C 78 16 154/96 H 97 Laboratory Results Cardiac Enzymes 07/12/19 Range/Units 11:54 AST 30 (15-37) U/L Troponin I < 0.015 (0-0.045) ng/ml CBC 07/12/19 Range/Units 11:54 WBC 8.66 (4.8-10.8) K/uL RBC 4.85 (4.7-6.1) M/uL Hgb 15.2 (14.0-18.0) g/dL Hct 44.3 (42-52) % Plt Count 245 (130-400) K/uL Neut # (Auto) 4.17 (1.4-6.5) K/uL Lymph # (Auto) 3.55 H (1.2-3.4) K/uL Graham # (Auto) 0.65 H (0.11-0.59) K/uL Eos # (Auto) 0.25 (0-0.5) K/uL Baso # (Auto) 0.02 (0-0.2) K/uL Comprehensive Metabolic Panel 07/12/19 Range/Units 11:54 Sodium 137 (136-145) mmol/L Potassium 4.1 (3.5-5.1) mmol/L Chloride 107 (98-107) mmol/L Carbon Dioxide 28 (21-32) mmol/L BUN 15 (7-18) mg/dl Creatinine 0.86 (0.6-1.4) mg/dl Glucose 95 (70-99) mg/dl Calcium 9.3 (8.5-10.1) mg/dl AST 30 (15-37) U/L ALT 66 (12-78) U/L Alkaline Phosphatase 80 (45-117) U/L Total Protein 7.7 (6.4-8.2) gm/dl Albumin 4.0 (3.4-5.0) gm/dl Intake and Output 07/12/19 07/12/19 07/12/19 06:59 14:59 22:59 Intake Total 500 / 500 Balance 500 / 500 Intake: IV 500 / 500 Nss 500 ml @ 999 mls/hr IV . 500 / 500 Q31M ONE Rx#:[id number] Other: Weight 94.7 kg Patient Weight 07/13/19 06:59 Weight 94.7 kg
--- NOTE | 2019-07-12 16:29 | History & Physical Report ---
Date of Service July 12, 2019 Assessment & Plan (1) Chest pain: (2) CAD (coronary artery disease): This is a 53yo M with a PMH of CAD (s/p TAMMY to mid-LAD and prox 2nd diagonal in January 2019), HTN, HLD, fibromyalgia and tobacco use disorder who presents with chest pain since yesterday as well as episode of near syncope today. -H/o NSTEMI in January 2019 with TAMMY placement to mid-LAD and prox 2nd diagonal. Has followed up with [facility] cardiology since then with continued discomfort. Was started on Imdur in April -Has been chest pain free since admission and is hemodynamically stable. Initial troponin was negative, CXR without acute cardiopulmonary findings, EKG with NSR and no changes -Was evaluated by Dr. Ryder in ED who recommends repeat cardiac catheterization tomorrow due to history of complex coronary anatomy with bifurcating lesions as well as multiple symptomatic episodes since stent placement in January 2019 -Trend troponin, monitor on telemetry, cardiology following -Continue aspirin and plavix -NPO after midnight (3) HTN (hypertension): Normotensive -Continue Toprol (4) Dyslipidemia: Continue statin (5) Tobacco use disorder: Uses e-cigarettes now. Has not used for the past week (6) Fibromyalgia: Continue Lyrica DVT Ppx: SCDs Code status: FULL PCP: Rd Dispo: Admit to PCU. Plan to return home once medically stable. Patient seen in collaboration with Dr. Cedeño. Please see addendum. History of Present Illness Chief Complaint: chest pain Primary Care Provider: Jamie Sultana MD This is a 53yo M with a PMH of CAD (s/p TAMMY to mid-LAD and prox 2nd diagonal in January 2019), HTN, HLD, fibromyalgia and tobacco use disorder who presents with chest pain since yesterday. Describes central 4/10 chest discomfort since yesterday that was intermittent and resolved with ntg. Also endorses an episode of lightheadedness, diaphoresis and near syncope on Friday that resolved and then recurred again today, prompting the ED visit. Patient has also been having intermittent SOB for the past few weeks since his Toprol dose was increased as well as a tingling sensation below bilateral elbows. Currently, patient is asymptomatic. Denies fever, chills, visual changes, chest pain, SOB, nausea, vomiting, dysuria, diarrhea or constipation. Patient follows with [facility] cardiology service and has been seen several times since NSTEMI in January 2019 with TAMMY placement to mid-LAD and prox 2nd diagonal. Was seen in ED in late March for similar symptoms of lesser degree and underwent an exercise stress echocardiogram. Per cardiology, during exercise stress echo patient had a "vague twinge of chest discomfort at low levels of exercise that did not progress with higher levels of exercise with no EKG or echocardiographic evidence of inducible ischemia". Was evaluated by Dr. Hill in April with some chest discomfort and was started on Imdur. Then had an episode of SVT during cardiac rehab in May that was reviewed by Dr. Cardenas and Toprol dose was increased to 50mg in AM and 25mg in PM. In ED, patient is afebrile and hemodynamically stable. Initial troponin was negative, CXR without acute cardiopulmonary findings, EKG with NSR and no changes. Was evaluated by Dr. Ryder in ED who recommends repeat cardiac catheterization on an elective basis within the next 24 hours due to history of complex coronary anatomy with bifurcating lesions as well as multiple symptomatic episodes since stent placement back in January 2019. Allergies Allergy/AdvReac Type Severity Reaction Status Date / Time blue dye AdvReac Unknown URINARY Verified 07/12/19 12:38 HESITIANCY duloxetine AdvReac Unknown URINARY Verified 07/12/19 12:38 HESITIANCY milnacipran AdvReac Unknown TESTICULAR Verified 07/12/19 12:38 PAIN Home Medications Home Medications Medication Instructions Recorded Confirmed Type pregabalin [Lyrica] 100 mg PO HS 01/26/19 07/12/19 History nitroglycerin 0.4 mg SUBLINGUAL Q5M PRN #30 tab 01/27/19 07/12/19 Rx acetaminophen [Tylenol] 325 mg PO Q6H PRN 04/01/19 07/12/19 History aspirin [Ecotrin Low Strength] 81 mg PO HS 04/01/19 07/12/19 History clopidogrel 75 mg PO HS 04/01/19 07/12/19 History metoprolol succinate 25 mg PO HS 04/01/19 07/12/19 History atorvastatin 80 mg PO HS 07/12/19 07/12/19 History isosorbide mononitrate 30 mg PO HS 01/06/20 01/06/20 History metoprolol succinate 50 mg PO DAILY 07/12/19 07/12/19 History Past Med/Surg History Medical History CAD (coronary artery disease) (Chronic) Fibromyalgia (Chronic) Hyperlipidemia (Acute) Tobacco use disorder (Chronic) Surgical History History of cardiac cath (Acute) History of heart artery stent (Acute) Family History Mother Heart disease Father Heart disease Social History Preferred Language: Tajik Communication Ability: Effective Software Project Manager Required: No Beliefs That Will Affect Care: None Current Living Situation: Spouse 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 Stopped regular cigarettes, now using e-cigarette. ; Second Hand Exposure: No ; Hx Alcohol Use: No Hx Substance Use: No Review of Systems Review of Systems: At least ten systems reviewed and negative except as noted in the HPI. Physical Exam Physical Exam: General Appearance: WD/WN, vitals as above, NAD, sitting up in bed, pleasant, conversing easily Head: normocephalic, atraumatic Eyes: normal inspection, PERRL, conjunctivae normal, anicteric sclerae ENT: external ear and nose normal, oropharynx normal. + Bandage in place on tip of nose with small blister Neck: trachea midline, no thyromegaly normal visual inspection Respiratory: lungs clear to auscultation, no wheeze, rales, rhonchi. Normal insp/exp effort, no accessory muscle use Cardiovascular: regular rate, rhythm, no murmur, normal peripheral pulses. Vessels: no JVD or carotid bruit Chest: normal inspection of chest Abdomen/GI: normal bowel sounds, soft, nontender, no hepatosplenomegaly Extremities/Musculoskeletal: no cyanosis or clubbing, extremities motor strength 5/5 Neurologic: PERRL, EOMI, accommodation nl, no face palsy, no dysarthria, CN's II-XI intact bilaterally and moves all extremities Psychiatric: A+Ox3, euthymic affect Skin: no rashes, normal color, warm/dry Results & Data Vital Signs (Past 12 Hours) Vital Signs Temp Pulse Resp BP BP Pulse Ox 07/12/19 15:27 120/73 07/12/19 15:00 66 18 95 07/12/19 14:30 60 16 99 07/12/19 14:01 65 15 98 07/12/19 14:00 64 13 115/90 99 07/12/19 13:55 98 07/12/19 13:31 58 L 13 98 07/12/19 13:30 58 L 15 129/70 97 07/12/19 13:01 62 18 98 07/12/19 13:00 67 15 116/72 98 07/12/19 12:33 65 23 116/77 95 07/12/19 12:31 66 12 95 07/12/19 12:30 65 17 116/77 96 07/12/19 12:01 69 24 96 07/12/19 12:00 69 20 131/80 96 07/12/19 11:54 68 18 97 07/12/19 11:49 72 23 07/12/19 11:48 73 23 122/82 07/12/19 11:32 36.7 C 78 16 154/96 H 97 Laboratory Results Short CBC 07/12/19 Range/Units 11:54 WBC 8.66 (4.8-10.8) K/uL Hgb 15.2 (14.0-18.0) g/dL Hct 44.3 (42-52) % Plt Count 245 (130-400) K/uL BMP 07/12/19 11:54 Sodium 137 Potassium 4.1 Chloride 107 Carbon Dioxide 28 BUN 15 Creatinine 0.86 Glucose 95 Calcium 9.3 Cardiac Enzymes 07/12/19 Range/Units 11:54 Troponin I < 0.015 (0-0.045) ng/ml Liver Function 07/12/19 Range/Units 11:54 Total Bilirubin 0.5 (0.2-1) mg/dl AST 30 (15-37) U/L ALT 66 (12-78) U/L Alkaline Phosphatase 80 (45-117) U/L Albumin 4.0 (3.4-5.0) gm/dl Diagnostic Findings CXR: IMPRESSION: No acute cardiopulmonary findings. ECG Rhythm: normal sinus Change: no significant change Code Status & VTE Plan VTE Prophylaxis Plan VTE Prophylaxis will be ordered: Yes Supervising Physician Co-Signing Physician Notes Pt was seen and examined. Agreed with Amy WONG exam, assessment and plan. 53yo M with a PMH of CAD (s/p TAMMY to mid-LAD and prox 2nd diagonal in January 2019), H TN, HLD, fibromyalgia and tobacco use disorder who presents with chest discomfort, diaphoresis , and near syncope. Pt said that symptoms has been going for the last few days where he developed chest discomfort and felt like he was about to pass out. Currently he is asymptomatic, and his EKG reveals stable findings of normal sinus rhythm. Initial troponin negative. Case discussed with Cardiology and plan for cardiac cath tomorrow. Will trend troponin. If troponin spike or if pt develops any chest pain, will start on heparin drip. Will make NPO after midnight. Continue monitor closely. MD Davidson (1) Chest pain Chest pain type: unspecified Qualified Code(s): R07.9 - Chest pain, unspecified
[2019-07-12] MEDS ORDERED: NITROGLYCERIN SL 0.4 MG/TAB TAB SL PRN ×2 (17:11→18:40)
[2019-07-12] MEDS ORDERED: ACETAMINOPHEN 325 MG TAB PO PRN ×2 (17:11→18:40)
[2019-07-12] MEDS: METOPROLOL SUCC 25MG EXT REL TAB PO SCH (19:45)
[2019-07-12] MEDS: ATORVASTATIN 40 MG TAB PO SCH (19:45)
[2019-07-12] MEDS: CLOPIDOGREL BISULFATE 75 MG TAB PO SCH (19:46)
[2019-07-12] MEDS ORDERED: ISOSORBIDE MONO EXTENDED REL 30 MG TABCR PO SCH (21:00)
[2019-07-12] MEDS: PREGABALIN 100 MG CAP PO SCH (21:07)
[2019-07-13 06:37] LABS: Hematocrit (blood only) 43.9 % (42-52); Mean Corpuscular Hemoglobin 30.9 pg (25-34); Mean Corpuscular Hgb Conc 34.2 g/dL (32-36); Mean Corpuscular Volume 90.5 fL (80-100); Mean Platelet Volume 10.4 fL (7.4-10.4); Platelet Count 227 K/uL (130-400); RDW Coefficient of Variation 12.4 % (11.5-14.5); RDW Standard Deviation 40.9 fL (36.4-46.3); Red Blood Count 4.85 M/uL (4.7-6.1); White Blood Count 7.38 K/uL (4.8-10.8)
[2019-07-13 07:01] LABS: BUN Creatinine Ratio 19.9 (10-20); Calcium 9.2 mg/dl (8.5-10.1); Creatinine Clr Calc Pharmacy 96.8 ml/min; Est GFR (African American) 103.4; Est GFR (Non-African American) 89.3; Potassium 4.3 mmol/L (3.5-5.1)
[2019-07-13] MEDS: METOPROLOL SUCC 50MG EXT REL TAB PO SCH (08:47)
[2019-07-13] MEDS ORDERED: HEPARIN (PORCINE) 1000 UNIT/ML 10 ML (CATH LAB USE ONLY) ONE (09:27)
[2019-07-13] MEDS ORDERED: fentaNYL citrate 100 MCG/2 ML VIAL ONE (09:28)
[2019-07-13] MEDS ORDERED: NiCARDipine HCL INJ 2.5 MG/ML 10 ML AMP ONE (09:28)
[2019-07-13] MEDS ORDERED: MIDAZOLAM HCL 1 MG/ML 2ML VIAL ONE (09:28)
[2019-07-13] MEDS ORDERED: NITROGLYCERIN/D5W 100MCG/ML 20ML SYR ONE (09:29)
--- NOTE | 2019-07-13 09:39 | Pre Anesthesia Assessment ---
Date of Service July 13, 2019 Pre Sedation Assessment Vital Signs Temp Pulse Pulse Resp BP BP Pulse Ox 07/13/19 09:33 53 L 20 127/74 97 07/13/19 07:58 36.5 C 59 L 18 122/69 96 07/13/19 04:00 36.5 C 56 L 18 114/76 96 07/13/19 00:00 36.5 C 60 18 104/62 95 07/12/19 18:55 36.6 C 64 18 123/77 94 07/12/19 17:11 36.8 C 63 18 129/86 97 07/12/19 16:31 64 25 H 96 07/12/19 16:30 62 26 H 128/86 96 07/12/19 16:00 67 26 H 138/91 96 07/12/19 15:31 64 19 98 07/12/19 15:30 71 21 131/89 98 07/12/19 15:27 120/73 07/12/19 15:26 63 23 120/73 98 07/12/19 15:00 66 18 95 07/12/19 14:30 60 16 99 07/12/19 14:01 65 15 98 07/12/19 14:00 64 13 115/90 99 07/12/19 13:55 98 07/12/19 13:31 58 L 13 98 07/12/19 13:30 58 L 15 129/70 97 07/12/19 13:01 62 18 98 07/12/19 13:00 67 15 116/72 98 07/12/19 12:33 65 23 116/77 95 07/12/19 12:31 66 12 95 07/12/19 12:30 65 17 116/77 96 07/12/19 12:01 69 24 96 07/12/19 12:00 69 20 131/80 96 07/12/19 11:54 68 18 97 07/12/19 11:49 72 23 07/12/19 11:48 73 23 122/82 07/12/19 11:32 36.7 C 78 16 154/96 H 97 Cardiovascular RRR, no murmur, no edema Respiratory normal respiratory effort, lungs clear to auscultation Pre-Sedation Airway Assessment Smoking Status: Former smoker Hx Sleep Apnea: No Hx Difficult Intubation: No Short, Thick Neck: No Thyromental Distance: > or= 3.5 Finger Breadths Oral Cavity: + WNL Mallampati Class: I ASA: ASA3 NPO Status Date of Last Intake of Fluids: 07/12/19 Last Oral Intake of Fluids Comment: t-1 Procedure Planning Contraindications for Sedation: none Current Medications Reviewed: Yes Notes The planned sedation has been discussed with the patient. Informed Consent was obtained. I have identified the patient, determined the appropriateness of sedation and have assessed the patient immediately prior to the procedure. All medicine(s) and interventions are by my order.
--- NOTE | 2019-07-13 10:17 | Electrocardiogram Report ---
Test Reason : Blood Pressure : / mmHG Vent. Rate : 055 BPM Atrial Rate : 055 BPM P-R Int : 176 ms QRS Dur : 082 ms QT Int : 400 ms P-R-T Axes : 053 023 045 degrees QTc Int : 382 ms Sinus bradycardia Otherwise normal ECG When compared with ECG of 12-JUL-2019 11:43, No significant change was found Confirmed by Carl Christiansen ([id number]) on 07/13/2019 10:17:03 AM Referred By: REFERRED SELF Confirmed By:Carl Christiansen
--- NOTE | 2019-07-13 10:53 | Post Anesthesia Assessment ---
Date of Service July 13, 2019 Post Sedation Assessment Vital Signs Temp Pulse Pulse Resp BP BP Pulse Ox 07/13/19 09:33 53 L 20 127/74 97 07/13/19 08:00 63 07/13/19 07:58 36.5 C 59 L 18 122/69 96 07/13/19 04:00 36.5 C 56 L 18 114/76 96 07/13/19 00:00 36.5 C 60 18 104/62 95 07/12/19 18:55 36.6 C 64 18 123/77 94 07/12/19 17:11 36.8 C 63 18 129/86 97 07/12/19 16:31 64 25 H 96 07/12/19 16:30 62 26 H 128/86 96 07/12/19 16:00 67 26 H 138/91 96 07/12/19 15:31 64 19 98 07/12/19 15:30 71 21 131/89 98 07/12/19 15:27 120/73 07/12/19 15:26 63 23 120/73 98 07/12/19 15:00 66 18 95 07/12/19 14:30 60 16 99 07/12/19 14:01 65 15 98 07/12/19 14:00 64 13 115/90 99 07/12/19 13:55 98 07/12/19 13:31 58 L 13 98 07/12/19 13:30 58 L 15 129/70 97 07/12/19 13:01 62 18 98 07/12/19 13:00 67 15 116/72 98 07/12/19 12:33 65 23 116/77 95 07/12/19 12:31 66 12 95 07/12/19 12:30 65 17 116/77 96 07/12/19 12:01 69 24 96 07/12/19 12:00 69 20 131/80 96 07/12/19 11:54 68 18 97 07/12/19 11:49 72 23 07/12/19 11:48 73 23 122/82 07/12/19 11:32 36.7 C 78 16 154/96 H 97 Recovery Score Activity: Moves 4 extremities Respiration: Deep Breath/Cough Circulation: +/-20% PreAnes Value Consciousness: Fully Awake Discharge Sedation Level of Care: Phase I Post Sedation Plan On clinical assessment, the patient appears to have tolerated the sedation without complications. Patient is recovering as anticipated. Patient will continue to be monitored by nursing and may be discharged when sedation discharge criteria are met per below protocol. Upon Completions of procedure up to 15 minutes continue every 5 minute vital signs and the P.A.R. score; then discharge to a Phase I or Fast Track to Phase II per the following guidelines: * Discharge Patient to appropriate Phase II area if PAR is 8 or greater or return to pre- procedure baseline. The post - procedure orders will be as directed. * If PAR score is less than 8 or not return to pre-procedure baseline then patient will follow Phase I monitoring till PAR is reached for Phase II. The Phase I may be done in procedure room or may call to secure a Phase I area. * If naloxone or flumazenil are used for reversal, hold in Phase I for continued monitoring from when last reversal dose was given for a minimum of 60 minutes or longer pending the nurse and/or physician discretion of patient condition before discharge to Phase II. Please call the Sedation Physician to re-evaluate and complete post-note for discharge to Phase II area. Do NOT discharge from procedure sedation or Phase 1 until post- sedation evaluation note is complete by procedure /sedation MD Sedation Discharge Instructions to be given to the patient at discharge to home.
[2019-07-13] MEDS ORDERED: ACETAMINOPHEN 325 MG TAB PO PRN (11:10)
[2019-07-13] MEDS ORDERED: ONDANSETRON INJ 2 MG/ML 2 ML VIAL IV PRN (11:10)
[2019-07-13] MEDS ORDERED: SODIUM CHLORIDE 0.9% 500 ML IV PRN (11:10)
--- NOTE | 2019-07-13 11:10 | Cardiac Catheterization ---
Cardiac Cath Procedure Full Procedure Date July 13, 2019 Pre-Procedure Diagnosis Pre-Procedure Diagnosis: Angina and CAD AUC Score AUC Score: 7 Post-Procedure Diagnosis Post-Procedure Diagnosis: Moderate CAD Procedure(s) Performed Procedure(s) Performed: Coronary Angiography and Left Heart Cath Scientific Software Engineer Jimy Cardenas DO Comfort Station Supervisor(s) [place] PAIRER SUBSTANDARD Estimated Blood Loss Estimated Blood Loss: 5cc Medication(s) Medication(s): Fentanyl, Heparin, Lidocaine 1%, Nicardipine, Nitroglycerin and Versed Summary of Findings Patent LAD and Diagonal stents. 50-60% ostial diagonal stenosis unchanged when compared to angiography 01/2019. Hemodynamics Rest Ao:: 123/70/102 Final Ao: 118/66/89 LV: 123//15 Recommendations Recommendations: Medical Therapy and/or Counseling (Case discussed with interventional cardiology. Ostial diagonal PCI considered high risk due to potential compromise of the LAD. Medical management recommended. Isosorbide monohydrate will be titrated prior to discharge.) Specimens Specimens: None Radiation Exposure (mGy) 1334 Contrast (mls) 80 Fluids (cc crystalloids) Fluids (cc crystalloids): 60 Nss Anesthesia Moderate sedation. Start 1017. End 1052. Sedation monitor: Flako AVILA Procedural Complication(s) None Disposition PCU I attest to the content of the Intraoperative Record and any orders documented therein. Any exceptions are noted below. ACC Data: Validation Software Facilitator Cardiac Status Clinical evaluation leading to the procedure CAD Presenation: Unstable angina Anginal Classification: CCS II Coronary Anatomy Left Main (% Stenosis): Normal LAD (% Stenosis): Mid (patent stent followed by 50% stenosis distal to D2) D1 (% Stenosis): Ostial (50-60%) and Proximal (patent stent) D2 (% Stenosis): Ostial (30%, small vessel) Circumflex (% Stenosis): Proximal (20%) and Mid (small AV groove vessel) OM1 (% Stenosis): Ostial (10%, small vessel) OM2 (% Stenosis): Ostial (moderate caliber vessel, gives rise to small secondary branch), Proximal (20%) and Mid (30% diffuse) RCA (% Stenosis): Mid (40-50%) and Distal (20%) R PDA (% Stenosis): Proximal (40-50%) and Mid (30%) R PL1 (% Stenosis): Proximal (20%) Diagnostic Physicians Name: Jimy Cardenas DO Status: Elective Closure Device Percutaneous Entry Location: Radial Closure Device: Radial Band Recommendations: Medical Therapy and/or Counseling (Case discussed with interventional cardiology. Ostial diagonal PCI considered high risk due to potential compromise of the LAD. Medical management recommended. Isosorbide monohydrate will be titrated prior to discharge.) Intraprocedure Events Significant Disection: No Perforation: No
[2019-07-13] MEDS: ISOSORBIDE MONO EXTENDED REL 60 MG TABCR PO SCH (12:42)
--- NOTE | 2019-07-13 16:55 | Hospitalist Progress Note ---
Date of Service July 13, 2019 Assessment & Plan (1) Chest pain: (2) CAD (coronary artery disease): s/p cardiac catheterization -This is a 53yo M with a PMH of CAD (s/p TAMMY to mid-LAD and prox 2nd diagonal in January 2019), HTN, HLD, fibromyalgia and tobacco use disorder who presents with chest pain complaints and near syncope today. -history of NSTEMI in January 2019 with TAMMY placement to mid-LAD and prox 2nd diagonal. Has followed up with [facility] cardiology since then with continued di scomfort. Was started on Imdur in April -cardiac catheterization performed on 07/13/2019: Summary of Findings Patent LAD and Diagonal stents. 50-60% ostial diagonal stenosis unchanged when compared to angiography 01/2019. Recommendations: Medical Therapy and/or Counseling (Case discussed with interventional cardiology. Ostial diagonal PCI considered high risk due to potential compromise of the LAD. Medical management recommended. Isosorbide monohydrate titrated by cardiology) -Continue aspirin and clopidogrel and statin (3) HTN (hypertension): Normotensive -Continue metoprolol (4) Dyslipidemia: -Continue statin (5) Tobacco use disorder: -Uses e-cigarettes at home (6) Fibromyalgia: -Continue Lyrica DVT Ppx: SCDs Code status: FULL PCP: [facility] Patient seen and examined at bedside after cardiac cath. Patient did report an episode of chest pain after cardiac cath but it self-resolved. Patient speaking in full sentences and breathing on room air and denies pain currently. no abdominal complaints. no nausea. no vomiting. no dizziness. no headache Review of Systems Review of Systems: All systems reviewed & are unremarkable except as noted in HPI & below Physical Exam 2 Constitutional: comfortable Eyes: PERRL, conjunctivae normal, anicteric sclerae EOM intact bilaterally ENMT: external ear and nose normal, oropharynx normal Neck: normal visual inspection Respiratory: normal respiratory effort, lungs clear to auscultation Cardiovascular: RRR, no murmur, no edema Gastrointestinal (Abdomen): normal bowel sounds, soft, nontender, no hepatosplenomegaly Musculoskeletal: Head/Neck/Chest: normocephalic and head atraumatic Neurologic: PERRL, EOMI, accommodation nl, no face palsy, no dysarthria CN's II-XI intact bilaterally Psychiatric: A+Ox3, euthymic affect Results & Data Vital Signs (Past 12 Hours) Vital Signs Temp Pulse Pulse Resp BP Pulse Ox 07/13/19 16:25 36.7 C 64 18 109/73 96 07/13/19 15:25 36.7 C 62 18 115/81 96 07/13/19 14:25 36.7 C 65 18 126/84 96 07/13/19 13:25 36.7 C 68 16 118/81 96 07/13/19 12:25 64 18 121/83 96 07/13/19 11:55 36.7 C 67 18 138/96 97 07/13/19 11:45 59 L 07/13/19 11:25 36.7 C 58 L 18 127/84 96 07/13/19 11:15 67 16 130/76 97 07/13/19 11:00 61 16 130/83 98 07/13/19 09:33 53 L 20 127/74 97 07/13/19 08:00 63 07/13/19 07:58 36.5 C 59 L 18 122/69 96 (1) Chest pain Chest pain type: unspecified Qualified Code(s): R07.9 - Chest pain, unspecified
[2019-07-13] MEDS: PREGABALIN 100 MG CAP PO SCH (20:53)
[2019-07-13] MEDS ORDERED: ASPIRIN 81 MG ECTAB PO SCH (21:00)
[2019-07-13] MEDS: METOPROLOL SUCC 25MG EXT REL TAB PO SCH (21:34)
[2019-07-13] MEDS: CLOPIDOGREL BISULFATE 75 MG TAB PO SCH (21:34)
[2019-07-13] MEDS: ATORVASTATIN 40 MG TAB PO SCH (21:34)
[2019-07-14 07:17] LABS: Hematocrit (blood only) 44.6 % (42-52); Mean Corpuscular Hgb Conc 33.6 g/dL (32-36); Mean Corpuscular Volume 92.1 fL (80-100); Mean Platelet Volume 10.3 fL (7.4-10.4); Platelet Count 242 K/uL (130-400); RDW Coefficient of Variation 12.3 % (11.5-14.5); RDW Standard Deviation 41.3 fL (36.4-46.3); Red Blood Count 4.84 M/uL (4.7-6.1); White Blood Count 7.93 K/uL (4.8-10.8)
[2019-07-14 07:56] LABS: BUN Creatinine Ratio 17.7 (10-20); Creatinine Clr Calc Pharmacy 93.6 ml/min; Est GFR (African American) 98.5; Est GFR (Non-African American) 84.9; Potassium 4.1 mmol/L (3.5-5.1)
--- NOTE | 2019-07-14 10:14 | Electrocardiogram Report ---
Test Reason : Blood Pressure : / mmHG Vent. Rate : 055 BPM Atrial Rate : 055 BPM P-R Int : 180 ms QRS Dur : 078 ms QT Int : 402 ms P-R-T Axes : 050 021 053 degrees QTc Int : 384 ms Sinus bradycardia Otherwise normal ECG When compared with ECG of 13-JUL-2019 06:31, No significant change was found Confirmed by Carl Christiansen ([id number]) on 07/14/2019 10:14:22 AM Referred By: REFERRED SELF Confirmed By:Carl Christiansen
[2019-07-14] MEDS: METOPROLOL SUCC 50MG EXT REL TAB PO SCH (10:40)
[2019-07-14] MEDS: ISOSORBIDE MONO EXTENDED REL 60 MG TABCR PO SCH (10:40)
--- NOTE | 2019-07-14 14:08 | Cardiology Progress Note ---
Date of Service July 14, 2019 Assessment & Plan (1) CAD (coronary artery disease): EKG this am reveals SB at 55, normal ST segments. Cath 07/13/28 revealed patent LAD and diagonal stents. 50-60% ostial diagonal stenosis , unchanged compared to 01/2019. PCI considered high risk due to potential compromise of the LAD. Ongoing medication recommendation therefore recommended. Stable for discharge on HAND ZIPPER TRIMMER medication, plus increased dose of Imdur from 30 mg to 60 mg. 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 Subjective Pt denies chest pain or shortness of breath. Telemetry reveals stable sinus rhythm and sinus bradycardia in the range of 50- 60 bpm. Review of Systems Review of Systems: All systems reviewed & are unremarkable except as noted in HPI & below Physical Exam Physical Exam: Temp Pulse Resp BP Pulse Ox 36.5 C 65 19 108/69 96 07/14/19 11:54 07/14/19 11:54 07/14/19 11:54 07/14/19 11:54 07/14/19 11:54 Constitutional: WD/WN, vitals as above Respiratory: normal respiratory effort, lungs clear to auscultation Cardiovascular: RRR, no murmur, no edema Extremities: no edema Radial access site, clean dry and intact Gastrointestinal (Abdomen): normal bowel sounds, soft, nontender, no hepatosplenomegaly Neurologic: PERRL, EOMI, accommodation nl, no face palsy, no dysarthria Results & Data Vital Signs (Past 12 Hours) Vital Signs Temp Pulse Resp BP Pulse Ox 07/14/19 11:54 36.5 C 65 19 108/69 96 07/14/19 08:21 36.6 C 63 20 120/78 96 07/14/19 05:13 36.5 C 67 24 120/64 96
--- NOTE | 2019-07-14 15:02 | Hospitalist Progress Note ---
Date of Service July 14, 2019 Assessment & Plan (1) Chest pain: (2) CAD (coronary artery disease): Chest pain from CAD (coronary artery disease), Presyncope, History of Coronary artery stent placement in the past s/p cardiac catheterization -This is a 53yo M with a PMH of CAD (s/p TAMMY to mid-LAD and prox 2nd diagonal in January 2019), HTN, HLD, fibromyalgia and tobacco use disorder who presents with chest pain complaints and near syncope today. -history of NSTEMI in January 2019 with TAMMY placement to mid-LAD and prox 2nd diagonal. Has followed up with [facility] cardiology since then with continued discomfort. Was started on Imdur in April -cardiac catheterization performed on 07/13/2019: Summary of Findings Patent LAD and Diagonal stents. 50-60% ostial diagonal stenosis unchanged when compared to angiography 01/2019. Recommendations: Medical Therapy and/or Counseling (Case discussed with interventional cardiology. Ostial diagonal PCI considered high risk due to potential compromise of the LAD. Medical management recommended. Isosorbide monohydrate titrated by cardiology as 60 mg daily) -Continue aspirin and clopidogrel and statin -07/14/2019 Discharge medication of isosorbide mononitrate 60 mg dailysent electronically to [facility] on [address] [place] [address] follow up appointments 07/19/2019 3:10 PM Provider Jamie Sultana MD Department [facility] 07/30/2019 2:00 PM Provider Sabino Moses Jr., DO Department Cardiology, [facility] 08/13/2019 1:30 PM Provider Sabino Moses Jr., DO Department Cardiology, [facility] (3) HTN (hypertension): Normotensive -Continue metoprolol (4) Dyslipidemia: -Continue statin (5) Tobacco use disorder: -Uses e-cigarettes at home (6) Fibromyalgia: -Continue Lyrica DVT Ppx: SCDs Code status: FULL PCP: Rd Subjective No chest pain. no shortness of breath. breathing on room air. ambulatory. no dizziness. no headache. no nausea. no vomitting. discharge plans dicusssed at length Review of Systems Review of Systems: All systems reviewed & are unremarkable except as noted in HPI & below Physical Exam Constitutional: comfortable Eyes: PERRL, conjunctivae normal, anicteric sclerae EOM intact bilaterally ENMT: external ear and nose normal, oropharynx normal Neck: normal visual inspection Respiratory: normal respiratory effort, lungs clear to auscultation Cardiovascular: RRR, no murmur, no edema Gastrointestinal (Abdomen): normal bowel sounds, soft, nontender, no hepatosplenomegaly Musculoskeletal: Head/Neck/Chest: normocephalic and head atraumatic Neurologic: PERRL, EOMI, accommodation nl, no face palsy, no dysarthria CN's II-XI intact bilaterally Psychiatric: A+Ox3, euthymic affect Results & Data Vital Signs (Past 12 Hours) Vital Signs Temp Pulse Resp BP BP Pulse Ox 07/14/19 14:28 36.5 C 65 19 117/73 108/69 96 07/14/19 11:54 36.5 C 65 19 108/69 96 07/14/19 08:21 36.6 C 63 20 120/78 96 07/14/19 05:13 36.5 C 67 24 120/64 96 (1) Chest pain Chest pain type: unspecified Qualified Code(s): R07.9 - Chest pain, unspecified
--- NOTE | 2019-07-14 15:06 | Discharge Summary ---
Date of Service July 14, 2019 Admission HPI Per Admitting Provider This is a 53yo M with a PMH of CAD (s/p TAMMY to mid-LAD and prox 2nd diagonal in January 2019), HTN, HLD, fibromyalgia and tobacco use disorder who presents with chest pain since yesterday. Describes central 4/10 chest discomfort since yesterday that was intermittent and resolved with ntg. Also endorses an episode of lightheadedness, diaphoresis and near syncope on Friday that resolved and then recurred again today, prompting the ED visit. Patient has also been having intermittent SOB for the past few weeks since his Toprol dose was increased as well as a tingling sensation below bilateral elbows. Currently, patient is asymptomatic. Denies fever, chills, visual changes, chest pain, SOB, nausea, vomiting, dysuria, diarrhea or constipation. Patient follows with [facility] cardiology service and has been seen several times since NSTEMI in January 2019 with TAMMY placement to mid-LAD and prox 2nd diagonal. Was seen in ED in late March for similar symptoms of lesser degree and underwent an exercise stress echocardiogram. Per cardiology, during exercise stress echo patient had a "vague twinge of chest discomfort at low levels of exercise that did not progress with higher levels of exercise with no EKG or echocardiographic evidence of inducible ischemia". Was evaluated by Dr. Hill in April with some chest discomfort and was started on Imdur. Then had an episode of SVT during cardiac rehab in May that was reviewed by Dr. Cardenas and Toprol dose was increased to 50mg in AM and 25mg in PM. In ED, patient is afebrile and hemodynamically stable. Initial troponin was negative, CXR without acute cardiopulmonary findings, EKG with NSR and no changes. Was evaluated by Dr. Ryder in ED who recommends repeat cardiac catheterization on an elective basis within the next 24 hours due to history of complex coronary anatomy with bifurcating lesions as well as multiple symptomatic episodes since stent placement back in January 2019. Admission Exam Per Admitting Provider General Appearance: WD/WN, vitals as above, NAD, sitting up in bed, pleasant, conversing easily Head: normocephalic, atraumatic Eyes: normal inspection, PERRL, conjunctivae normal, anicteric sclerae ENT: external ear and nose normal, oropharynx normal. + Bandage in place on tip of nose with small blister Neck: trachea midline, no thyromegaly normal visual inspection Respiratory: lungs clear to auscultation, no wheeze, rales, rhonchi. Normal insp/exp effort, no accessory muscle use Cardiovascular: regular rate, rhythm, no murmur, normal peripheral pulses. Vessels: no JVD or carotid bruit Chest: normal inspection of chest Abdomen/GI: normal bowel sounds, soft, nontender, no hepatosplenomegaly Extremities/Musculoskeletal: no cyanosis or clubbing, extremities motor strength 5/5 Neurologic: PERRL, EOMI, accommodation nl, no face palsy, no dysarthria, CN's II-XI intact bilaterally and moves all extremities Psychiatric: A+Ox3, euthymic affect Skin: no rashes, normal color, warm/dry Principal Diagnosis Chest pain from CAD (coronary artery disease), Presyncope, History of Coronary artery stent placement in the past, Hypertension Discharge Exam Constitutional comfortable Eyes PERRL, conjunctivae normal, anicteric sclerae EOM intact bilaterally ENMT external ear and nose normal, oropharynx normal Neck normal visual inspection Respiratory normal respiratory effort, lungs clear to auscultation Cardiovascular RRR, no murmur, no edema Gastrointestinal (Abdomen) normal bowel sounds, soft, nontender, no hepatosplenomegaly Musculoskeletal Head/Neck/Chest: normocephalic and head atraumatic Neurologic PERRL, EOMI, accommodation nl, no face palsy, no dysarthria CN's II-XI intact bilaterally Psychiatric A+Ox3, euthymic affect Discharge Data Allergies Allergy/AdvReac Type Severity Reaction Status Date / Time blue dye AdvReac Unknown URINARY Verified 07/12/19 12:38 HESITIANCY duloxetine AdvReac Unknown URINARY Verified 07/12/19 12:38 HESITIANCY milnacipran AdvReac Unknown TESTICULAR Verified 07/12/19 12:38 PAIN Consultations 07/12/19 15:15 ED Decision to Admit Stat 07/12/19 17:11 Consult Cardiology Routine Procedures Performed Operation Date: 07/13/19 09:30 Actual Procedures p Cath, Left with Cors and Vent - Jimy Cardenas DO s Cineradiography w/Routine Exam - Jimy Cardenas DO Ordered Studies 07/13/19 06:47 CL Cath Imgs for PACS use only Routine Hospital Course (1) Chest pain: (2) CAD (coronary artery disease): Chest pain from CAD (coronary artery disease), Presyncope, History of Coronary artery stent placement in the past s/p cardiac catheterization -This is a 53yo M with a PMH of CAD (s/p TAMMY to mid-LAD and prox 2nd diagonal in January 2019), HTN, HLD, fibromyalgia and tobacco use disorder who presents with chest pain complaints and near syncope today. -history of NSTEMI in January 2019 with TAMMY placement to mid-LAD and prox 2nd diagonal. Has followed up with [facility] cardiology since then with continued discomfort. Was started on Imdur in April -cardiac catheterization performed on 07/13/2019: Summary of Findings Patent LAD and Diagonal stents. 50-60% ostial diagonal stenosis unchanged when compared to angiography 01/2019. Recommendations: Medical Therapy and/or Counseling (Case discussed with interventional cardiology. Ostial diagonal PCI considered high risk due to potential compromise of the LAD. Medical management recommended. Isosorbide monohydrate titrated by cardiology as 60 mg daily) -Continue aspirin and clopidogrel and statin -07/14/2019 Discharge medication of isosorbide mononitrate 60 mg dailysent electronically to [facility] on [address] [place] [id number] follow up appointments 07/19/2019 3:10 PM Provider Jamie Sultana MD Department [facility] 07/30/2019 2:00 PM Provider Sabino Moses Jr., Department Cardiology, [facility] 08/13/2019 1:30 PM Provider Sabino Moses Jr., Department Cardiology, [facility] (3) HTN (hypertension): Normotensive -Continue metoprolol (4) Dyslipidemia: -Continue statin (5) Tobacco use disorder: -Uses e-cigarettes at home (6) Fibromyalgia: -Continue Lyrica DVT Ppx: SCDs Code status: FULL PCP: Rd Total Time Total Time Spent Total Time Spent (In Minutes): 40 minutes Total Time Includes: Examination of the Patient, Discharge Planning, Medication Reconciliation and Communication With Other Providers Discharge Plan Discharge Items Patient Disposition: Home - Self-Care Reason For Visit: CHEST PAIN,H/O TAMMY IN 01/22 Discharge Diagnosis: Chest pain from CAD (coronary artery disease), Presyncope, History of Coronary artery stent placement in the past, Hypertension Condition on Discharge: Good Activity: Per Instructions section Weightbearing Comment: may return to work on 07/19/19 given right radial cath access Non-emergency contact: Primary Care Provider 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 Call non-emergency contact if: you have any medication questions Follow-up/Referrals: Jamie Sultana MD [Primary Care Provider] - Diet: Heart Healthy Addtl Attending Provider Instructions: Discharge medication of isosorbide mononitrate 60 mg dailysent electronically to [facility] on [address] [place] [id number] follow up appointments 07/19/2019 3:10 PM Provider Jamie Sultana MD [facility] 07/30/2019 2:00 PM Provider Sabino Moses Jr., Department Cardiology, [facility] 08/13/2019 1:30 PM Provider Sabino Moses Jr., Department Cardiology, [facility] Pending Studies at Discharge: No Stand-Alone Forms: [facility], Smoking Cessation Medications and DC Order Prescriptions: New isosorbide mononitrate 60 mg Tablet Extended Release 24 Hr 60 mg PO QAM 30 Days Qty: 30 RF: 0 Continued pregabalin [Lyrica] 100 mg capsule 100 mg PO HS RF: 0 nitroglycerin 0.4 mg tablet, sublingual 0.4 mg sublingual Q5M PRN (Reason: chest pain) Qty: 30 RF: 3 acetaminophen [Tylenol] 325 mg Tablet 325 mg PO Q6H PRN (Reason: Pain) RF: 0 clopidogrel 75 mg tablet 75 mg PO HS RF: 0 aspirin [Ecotrin Low Strength] 81 mg tablet,delayed release (DR/EC) 81 mg PO HS RF: 0 metoprolol succinate 25 mg tablet extended release 24 hr 25 mg PO HS RF: 0 atorvastatin 80 mg tablet 80 mg PO HS RF: 0 metoprolol succinate 50 mg Capsule,Sprinkle,Er 24hr 50 mg PO DAILY RF: 0 Discontinued isosorbide mononitrate 30 mg tablet extended release 24 hr 30 mg PO HS RF: 0 Discharge Orders: Discharge Order (Routine); Ordered 07/14/19 Ordered By: Elías Seals Admission Data Admit Date/Time: 07/12/19 15:45 Attending Provider: Elías Seals Admit Provider: Lee Cedeño Primary Care Provider: Jamie Sultana Other Providers: Lee Cedeño ; Rodo Ryder Other Interventions: Discharge Summary Assessment (RN) Last Done: 07/14/19 14:28 DC Date/Time DO NOT enter until pt leaves facility: 07/14/19 15:00
== END 2019-07-14 15:00 | disposition home or self-care (01) | DRG 287 ==
LOC: ED 11:28 → SUATTDRO 15:45 → 2S 15:45